=== PATIENT | female | born 1935 | race Caucasian/White ===

== ENCOUNTER 2021-01-08 10:28 | Outpatient (REF) | payer MEDICARE, SELFPAY ==
[2021-01-08 11:24] LABS: MANUAL DIFF FLAG NO
[2021-01-08 11:45] LABS: Basophils Percent Auto 0.4 % (0-2); Eosinophils Absolute Auto 0.3 X10*3/uL (0.0-0.4); Eosinophils Percent Auto 3.4 % (0-4); Hematocrit 34.5 % (37-47); Hemoglobin 10.7 g/dl (12.0-16.0); Imm Gran Abs Auto 0.01 X10*3/uL (0.00-0.03); Imm Gran Pct Auto 0.1 % (0.0-0.4); Lymphocytes Absolute Auto 2.9 X10*3/uL (1.2-4.9); Mean Corpuscular Hemoglobin 29.3 pg (27.0-33.0); Mean Corpuscular Volume 94.5 fL (80-98); Mean Platelet Volume 9.8 fL (9.4-12.3); Monocytes Absolute Auto 0.5 X10*3/uL (0.1-1.2); Monocytes Percent Auto 6.7 % (2-11); Neutrophils Absolute Auto 4.2 X10*3/uL (2.0-8.3); Neutrophils Percent Auto 53.4 % (45-73); Platelet Count 224 X10*3/uL (160-400); Red Blood Count 3.65 X10*6/uL (4.20-5.50); Red Cell Distribution Width 14.6 % (11.0-16.0); White Blood Count 7.9 X10*3/uL (4.8-10.8)
[2021-01-08 11:58] LABS: Alanine Aminotransferase 21 U/L (0-31); Anion Gap 13 (12-20); Aspartate Amino Transferase 34 U/L (5-31); Blood Urea Nitrogen 30 mg/dL (9-16); Calcium 9.1 mg/dL (8.4-10.2); Carbon Dioxide 25 mmol/L (22-29); Chloride 103 mmol/L (96-108); Cholesterol 132 mg/dL; Estimated Glomerular Filt Rate 38; Glucose Fasting 131 mg/dL (60-99); HDL Cholesterol 51 mg/dL; Iron 54 mcg/dL (30-160); LDL Cholesterol Calculated 69 mg/dl; Percent Iron Saturation 21 % (15-50); Potassium 4.4 mmol/L (3.3-5.1); Sodium 137 mmol/L (135-145); Total Iron Binding Capacity 258 mcg/dL (228-428); Triglycerides 64 mg/dL; Unsaturated Iron Binding 204 ug/dL
[2021-01-08 12:22] LABS: TSH reflex Free T4 1.28 uIU/mL (0.32-4.0); Vitamin D 25-OH Total 24.2 ng/mL (>30)
[2021-01-08 14:57] LABS: Microalbum/Creatinine Ratio Ur 162.7 ug/mg cr
== END 2021-01-08 10:29 | disposition home or self-care (01) ==
LOC: HO.HMGCLDS 10:28
PROVIDERS: PCP Internal Medicine; Visit Provider Internal Medicine
DX: E11.65 Type 2 diabetes mellitus with hyperglycemia (principal); E78.5 Hyperlipidemia, unspecified; I25.10 Atherosclerotic heart disease of native coronary artery without angina pectoris; I10 Essential (primary) hypertension; K21.9 Gastro-esophageal reflux disease without esophagitis; Z95.1 Presence of aortocoronary bypass graft
CPT/HCPCS: 36415; 80048; 80061; 82043; 82306; 83540; 84443; 84450; 84460; 85025

== ENCOUNTER → 2021-02-12 14:45 | Outpatient (BNVA) | payer MEDICARE, SELFPAY | PROVIDERS: PCP Internal Medicine; Referring Provider Internal Medicine; Visit Provider Internal Medicine Cardiovascular Disease | DX: I25.10 Atherosclerotic heart disease of native coronary artery without angina pectoris (principal); Z95.1 Presence of aortocoronary bypass graft; Z86.79 Personal history of other diseases of the circulatory system; Z79.899 Other long term (current) drug therapy | CPT/HCPCS: 93005; 99202 ==

== ENCOUNTER 2021-04-13 14:30 | Outpatient (REF) | payer MEDICARE, SELFPAY ==
[2021-04-13 16:22] LABS: MANUAL DIFF FLAG NO
[2021-04-13 16:26] LABS: Basophils Percent Auto 0.5 % (0-2); Eosinophils Absolute Auto 0.3 X10*3/uL (0.0-0.4); Eosinophils Percent Auto 3.7 % (0-4); Hematocrit 33.1 % (37-47); Hemoglobin 10.2 g/dl (12.0-16.0); Imm Gran Abs Auto 0.02 X10*3/uL (0.00-0.03); Imm Gran Pct Auto 0.2 % (0.0-0.4); Lymphocytes Absolute Auto 2.8 X10*3/uL (1.2-4.9); Lymphocytes Percent Auto 31.6 % (20-40); Mean Corpuscular HGB Conc 30.8 g/dl (31.0-35.0); Mean Corpuscular Hemoglobin 29.3 pg (27.0-33.0); Mean Corpuscular Volume 95.1 fL (80-98); Mean Platelet Volume 9.8 fL (9.4-12.3); Monocytes Absolute Auto 0.6 X10*3/uL (0.1-1.2); Monocytes Percent Auto 7.1 % (2-11); Neutrophils Percent Auto 56.9 % (45-73); Platelet Count 224 X10*3/uL (160-400); Red Blood Count 3.48 X10*6/uL (4.20-5.50); Red Cell Distribution Width 14.9 % (11.0-16.0); White Blood Count 8.8 X10*3/uL (4.8-10.8)
[2021-04-13 17:02] LABS: Alanine Aminotransferase 15 U/L (0-31); Anion Gap 14 (12-20); Aspartate Amino Transferase 27 U/L (5-31); Blood Urea Nitrogen 26 mg/dL (9-16); Calcium 9.4 mg/dL (8.4-10.2); Carbon Dioxide 24 mmol/L (22-29); Chloride 107 mmol/L (96-108); Cholesterol 130 mg/dL; Estimated Glomerular Filt Rate 33; Glucose Fasting 165 mg/dL (60-99); HDL Cholesterol 47 mg/dL; Iron 59 mcg/dL (30-160); LDL Cholesterol Calculated 58 mg/dl; Potassium 4.9 mmol/L (3.3-5.1); Sodium 140 mmol/L (135-145); Triglycerides 126 mg/dL
[2021-04-13 17:10] LABS: Vitamin D 25-OH Total 25.6 ng/mL (>30)
[2021-04-13 17:15] LABS: Percent Iron Saturation 24 % (15-50); Total Iron Binding Capacity 247 mcg/dL (228-428); Unsaturated Iron Binding 188 ug/dL
[2021-04-14 16:20] LABS: Folate > 20.0 ng/mL (> or = 4.0); Vitamin B12 823 pg/mL (200-900)
== END 2021-04-13 14:31 | disposition home or self-care (01) ==
LOC: HO.HMGCLDS 14:30
PROVIDERS: PCP Internal Medicine; Visit Provider Internal Medicine
DX: D64.9 Anemia, unspecified (principal); E11.65 Type 2 diabetes mellitus with hyperglycemia; I25.10 Atherosclerotic heart disease of native coronary artery without angina pectoris; K21.9 Gastro-esophageal reflux disease without esophagitis; E78.5 Hyperlipidemia, unspecified; I10 Essential (primary) hypertension; Z95.1 Presence of aortocoronary bypass graft; Z85.79 Personal history of other malignant neoplasms of lymphoid, hematopoietic and related tissues
CPT/HCPCS: 36415; 80048; 80061; 82306; 82607; 82746; 83540; 84450; 84460; 85025

== ENCOUNTER → 2021-04-20 10:08 | Outpatient (REF) | payer MEDICARE, SELFPAY ==
--- NOTE | 2021-04-20 10:12 | CA_ITS ---
Transthoracic Echocardiogram Patient (Last, First, Middle): Stephanie Fernandez, Gender: Female Date of : 1935 Age: 86 Procedure Date: 04/20/2021 Procedure Type: Transthoracic Echocardiogram Location: OP Height: 154.94 cm Weight: 69.4 kg BSA: 1.69 m2 Heart Rate: bpm BP: 120 / 62 mmHg Communications Executive: Malorie MD: Gio Noriega MD Shrinking Machine Operator: Daniel Prabhakar MD Symptoms: I42.9 - Cardiomyopathy, unspecified Study Quality: Technically Difficult ECG Rhythm: Sinus Conclusions: - 1. Normal LV systolic function with impaired relaxation filling pattern 2. Reported prosthetic aortic valve with mean gradients within normal limits 3. Mitral and calcification with possible mitral stenosis with mild mitral regurgitation 4. No gross pericardial effusion Findings Procedure Information The patient receives contrast. Left Ventricle Normal left ventricular cavity size. The left ventricular systolic function is normal. The visually estimated ejection fraction is between 55-60%. Regional wall motion abnormalities can not be excluded due to suboptimal endocardial definition. Spectral Doppler is indicative of an impaired relaxation filling pattern. E/E prime ratio is between 8 and 15 consistent with indeterminate filling pressures. Right Ventricle Normal right ventricular cavity size. There is low normal right ventricular systolic function. Atria The left atrium is likely dilated. Interatrial shunt cannot be excluded. The right atrium is likely dilated. Aortic Valve There is a prosthesis in the aortic valve the details of which can not be evaluated. The aortic valve was not well visualized. The mean gradient is 11 mmHg. The valve appears to be well seated with no abnormal rocking motion. Mean gradient across aortic valve appears to be within acceptable limits Mitral Valve There is moderate anterior and posterior mitral leaflet thickening. There is moderate mitral annular calcification. There is mild mitral valve regurgitation. Calcific mitral stenosis cannot be ruled out Pulmonic Valve The pulmonic valve was not well visualized. Tricuspid Valve The tricuspid valve was not well visualized. Great Vessels The aorta was not well visualized. The pulmonary artery was not well visualized. Venous The inferior vena cava was not well visualized. Pericardium/Pleural There is no evidence of pericardial effusion. Prior Study Comparison No prior study available for comparison. Measurements 2D Linear Measurements LVIDd: 3.63 3.9-5.3/4.2-5.9 cm LVIDd Index: 2.15 2.4-3.2/2.2-3.1 cm/m2 LVIDs: 2.99 2.0-3.6 cm LVPWd: 1.01 0.7-1.1 cm LA Diam: 3.70 2.7-3.8/3.0-4.0 cm LAIDs Index: 2.19 1.5-2.3 cm/m2 2D Systolic Function EF 4C: 47.60 >55% EF 2C: 65.00 >55% EF BiP: 58.20 >55% Mitral Valve MV Pk E: 0.96 MV PK A: 1.38 MV Decel Time: 482.00 E/A: 0.70 E'Lateral: 7.94 E'Medial: 3.92 E/E' Med: 24.40 E/E' Lat: 12.00 PHT: 107.00 MVA PHT: 2.06 Decel [place]: 3.16 Aortic Valve AoV Pk Bridger: 2.14 AoV Mn Bridger: 1.61 AoV VTI: 0.52 AoV Pk Grad: 18.00 Aov Mn Grad: 11.00 LVOT LVOT Pk Bridger: 0.90 LVOT Mn Bridger: 0.56 LVOT VTI: 0.21 LVOT Pk Grad: 3.00 LVOT Mn Grad: 2.00 Diastolic Function MV Pk E: 0.96 MV Pk A: 1.38 E/A: 0.70 E'Medial: 3.92 E/E' Med: 24.40 E' Laterial: 7.94 E/E' Lat: 12.00 Right Ventricle TAPSE (mm): 16.00 TVS' Bridger: 8.70 Tricuspid Valve TR Pk Bridger: 2.73 TR Pk Grad: 30.00 Updated in Other Vendor System with Status of Final Daniel Prabhakar MD electronically signed on 04/21/2021 2:20:14 PM with status of Final
== END ==
LOC: HO.CARD 10:08
PROVIDERS: Visit Provider Internal Medicine Cardiovascular Disease
DX: I42.9 Cardiomyopathy, unspecified (principal)
CPT/HCPCS: 93306; Q9957

== ENCOUNTER 2021-07-19 09:51 | Outpatient (REF) | payer MEDICARE, SELFPAY ==
[2021-07-19 11:38] LABS: MANUAL DIFF FLAG NO
[2021-07-19 11:53] LABS: Basophils Percent Auto 0.5 % (0-2); Eosinophils Absolute Auto 0.4 X10*3/uL (0.0-0.4); Eosinophils Percent Auto 5.6 % (0-4); Hematocrit 32.6 % (37.0-47.0); Hemoglobin 10.3 g/dl (12.0-16.0); Imm Gran Abs Auto 0.01 X10*3/uL (0.00-0.03); Imm Gran Pct Auto 0.1 % (0.0-0.4); Lymphocytes Absolute Auto 2.7 X10*3/uL (1.2-4.9); Lymphocytes Percent Auto 35.6 % (20-40); Mean Corpuscular HGB Conc 31.6 g/dl (31.0-35.0); Monocytes Absolute Auto 0.5 X10*3/uL (0.1-1.2); Neutrophils Absolute Auto 3.9 x10*3/uL (2.0-8.3); Neutrophils Percent Auto 51.2 % (45-73); Platelet Count 237 X10*3/uL (160-400); Red Blood Count 3.43 X10*6/uL (4.20-5.50); White Blood Count 7.7 X10*3/uL (4.8-10.8)
[2021-07-19 12:11] LABS: Estimated Average Glucose 146 mg/dL; Hemoglobin A1c % 6.7 %
[2021-07-19 13:12] LABS: Alanine Aminotransferase 15 U/L (0-31); Anion Gap 14 (12-20); Aspartate Amino Transferase 27 U/L (5-31); Blood Urea Nitrogen 25 mg/dL (9-16); Calcium 9.1 mg/dL (8.4-10.2); Carbon Dioxide 23 mmol/L (22-29); Chloride 105 mmol/L (96-108); Cholesterol 141 mg/dL; Estimated Glomerular Filt Rate 40; Glucose Fasting 117 mg/dL (60-99); HDL Cholesterol 60 mg/dL; Iron 114 mcg/dL (30-160); LDL Cholesterol Calculated 69 mg/dl; Percent Iron Saturation 44 % (15-50); Potassium 4.9 mmol/L (3.3-5.1); Sodium 137 mmol/L (135-145); Total Iron Binding Capacity 257 mcg/dL (228-428); Triglycerides 60 mg/dL; Unsaturated Iron Binding 143 ug/dL
[2021-07-19 13:22] LABS: Vitamin D 25-OH Total 39.6 ng/mL (>30)
== END 2021-07-19 09:52 | disposition home or self-care (01) ==
LOC: HO.HMGCLDS 09:51
PROVIDERS: PCP Internal Medicine; Visit Provider Internal Medicine
DX: D64.9 Anemia, unspecified (principal); E11.65 Type 2 diabetes mellitus with hyperglycemia; E56.9 Vitamin deficiency, unspecified; I10 Essential (primary) hypertension; E78.5 Hyperlipidemia, unspecified; Z78.0 Asymptomatic menopausal state
CPT/HCPCS: 36415; 80048; 80061; 82306; 83036; 83540; 84450; 84460; 85025

== ENCOUNTER → 2021-07-23 09:48 | Outpatient (BNVA) | payer MEDICARE, SELFPAY | PROVIDERS: PCP Internal Medicine; Referring Provider Internal Medicine; Visit Provider Internal Medicine Cardiovascular Disease | DX: I10 Essential (primary) hypertension (principal); Z95.1 Presence of aortocoronary bypass graft; Z86.79 Personal history of other diseases of the circulatory system | CPT/HCPCS: 99212 ==

== ENCOUNTER → 2021-10-04 12:50 | Outpatient (BNVA) | payer MEDICARE, SELFPAY | PROVIDERS: PCP Internal Medicine; Referring Provider Internal Medicine; Visit Provider Internal Medicine Cardiovascular Disease | DX: R55 Syncope and collapse (principal); R09.89 Other specified symptoms and signs involving the circulatory and respiratory systems; J44.9 Chronic obstructive pulmonary disease, unspecified; Z95.1 Presence of aortocoronary bypass graft | CPT/HCPCS: 93005; 99212 ==

== ENCOUNTER → 2021-10-10 10:51 | Outpatient (REF) | payer MEDICARE, SELFPAY ==
--- NOTE | 2021-10-10 10:56 | HM_ITS ---
TEST PERFORMED: Cardiac event monitoring. REQUESTING PHYSICIAN: Dr. Noriega. ENROLLMENT PERIOD: 10/10/2021 to 11/09/2021, 30 days. INDICATION: Syncope and collapse. FINDINGS: In the above monitoring period, underlying rhythm was sinus. Rates ranged from 74 to 120 beats per minute. There is evidence of intraventricular conduction defect. There was also evidence of PVCs. Ventricular bigeminy noted. During this time, there was 1 episode of mention of dizziness and that showed sinus tachycardia at 106/min. Otherwise, no other symptoms during the monitoring. German Rivera MD HS/MODL / [id number]
== END ==
LOC: HO.CARD 10:51
PROVIDERS: Visit Provider Internal Medicine Cardiovascular Disease
DX: R55 Syncope and collapse (principal)
CPT/HCPCS: 93270

== ENCOUNTER 2021-11-01 08:38 | Outpatient (REF) | payer MEDICARE, SELFPAY ==
--- NOTE | 2021-11-01 14:51 | PFT_ITS ---
FLOWS: FEV1 96% of predicted at 1.26 L. FVC 78% of predicted at 1.42 L. FEV1 to FVC ratio of 0.89. No bronchodilator response. LUNG VOLUMES: Total lung capacity 73% of predicted at 3.17 L. Residual volume 78% of predicted at 1.75 L. Slow vital capacity is 69% of predicted at 1.42 L. Expiratory reserve volume 212% of predicted at 0.51 L. Diffusion capacity is moderately decreased, diffusion capacity adjust to being mildly decreased after correction for alveolar ventilation. IMPRESSION: Mild restrictive ventilatory defect with no bronchodilator response. Decreased diffusion capacity suggests emphysema. Sergei Willis MD AP/MODL / [id number] MTDD
== END 2021-11-01 08:39 | disposition home or self-care (01) ==
LOC: HO.RESP 08:38
PROVIDERS: PCP Internal Medicine; Visit Provider Internal Medicine Cardiovascular Disease
DX: J44.9 Chronic obstructive pulmonary disease, unspecified (principal)
CPT/HCPCS: 94060; 94727; 94729

== ENCOUNTER 2021-11-06 14:31 | Outpatient (REF) | payer MEDICARE, SELFPAY ==
[2021-11-06 15:36] LABS: MANUAL DIFF FLAG NO
[2021-11-06 15:54] LABS: Basophils Percent Auto 0.5 % (0-2); Eosinophils Absolute Auto 0.4 X10*3/uL (0.0-0.4); Eosinophils Percent Auto 4.9 % (0-4); Hematocrit 34.1 % (37.0-47.0); Hemoglobin 10.3 g/dl (12.0-16.0); Imm Gran Abs Auto 0.02 X10*3/uL (0.00-0.03); Imm Gran Pct Auto 0.2 % (0.0-0.4); Lymphocytes Absolute Auto 2.4 X10*3/uL (1.2-4.9); Lymphocytes Percent Auto 28.2 % (20-40); Mean Corpuscular HGB Conc 30.2 g/dl (31.0-35.0); Mean Corpuscular Hemoglobin 29.3 pg (27.0-33.0); Mean Corpuscular Volume 97.2 fL (80.0-98.0); Mean Platelet Volume 9.8 fL (9.4-12.3); Monocytes Absolute Auto 0.6 X10*3/uL (0.1-1.2); Neutrophils Absolute Auto 5.1 x10*3/uL (2.0-8.3); Neutrophils Percent Auto 59.2 % (45-73); Platelet Count 243 X10*3/uL (160-400); Red Blood Count 3.51 X10*6/uL (4.20-5.50); Red Cell Distribution Width 14.7 % (11.0-16.0); White Blood Count 8.6 X10*3/uL (4.8-10.8)
[2021-11-06 16:03] LABS: D Dimer High Sensitivity 1522 NG/ML
[2021-11-06 16:20] LABS: Anion Gap 14 (12-20); Blood Urea Nitrogen 22 mg/dL (9-16); Calcium 9.5 mg/dL (8.4-10.2); Carbon Dioxide 24 mmol/L (22-29); Chloride 105 mmol/L (96-108); Estimated Glomerular Filt Rate 28; Glucose Random 151 mg/dL (60-115); Potassium 5.8 mmol/L (3.3-5.1); Sodium 137 mmol/L (135-145)
[2021-11-06 16:35] LABS: Erythrocyte Sedimentation Rate 67 MM/HR (0-20)
[2021-11-07 08:26] LABS: SARS-COV-2 IgG Spike, Semi-Qnt 24.73 index (<1.00)
[2021-11-08 13:41] LABS: Anti Nuclear Antibody Screen NEGATIVE (NEGATIVE)
== END 2021-11-06 14:32 | disposition home or self-care (01) ==
LOC: HO.LAB 14:31
PROVIDERS: PCP Internal Medicine; Visit Provider Hospitalist
DX: J98.4 Other disorders of lung (principal); J84.9 Interstitial pulmonary disease, unspecified; R09.02 Hypoxemia; R06.00 Dyspnea, unspecified; G47.34 Idiopathic sleep related nonobstructive alveolar hypoventilation; R55 Syncope and collapse; Z20.822 Contact with and (suspected) exposure to COVID-19
CPT/HCPCS: 36415; 80048; 85025; 85379; 85652; 86038; 86039; 86769; 94618; 99202

== ENCOUNTER 2021-11-07 09:20 | Emergency (ER) | payer MEDICARE, SELFPAY ==
--- NOTE | 2021-11-07 | ECG_ITS ---
Test Reason : abnormal labs Blood Pressure : / mmHG Vent. Rate : 088 BPM Atrial Rate : 088 BPM P-R Int : 204 ms QRS Dur : 104 ms QT Int : 366 ms P-R-T Axes : 047 045 136 degrees QTc Int : 442 ms Sinus rhythm with frequent Premature ventricular complexes in a pattern of bigeminy T wave abnormality, consider lateral ischemia Abnormal ECG No previous ECGs available Referred By: Generic ED Physician Electronically Signed By:MACARIO CROCKETT MD
--- NOTE | ~2021-11-07 | XR_ITS ---
EXAMINATION: XR CHEST CLINICAL INFORMATION: Shortness of breath COMPARISON: None TECHNIQUE: 2 views of the chest were obtained. FINDINGS: The cardiac silhouette is enlarged. There is an aortic valve replacement and median sternotomy wires. There may be post-CABG changes as well. Hilar and mediastinal contours are otherwise unremarkable. There are increased interstitial markings suggestive of interstitial lung disease. There is no pleural effusion or pneumothorax. There are degenerative changes of the spine and shoulders. XR/XR chest 2V IMPRESSION: Interstitial lung disease. Postoperative changes from aortic valve replacement and possible CABG procedure.
--- NOTE | ~2021-11-07 | NM_ITS ---
EXAMINATION: PULMONARY PERFUSION STUDY CLINICAL INFORMATION: Shortness of breath, elevated d-dimer. COMPARISON: No previous lung scan is available for comparison. A current chest radiograph is not available for comparison. TECHNIQUE: Following the intravenous injection of 4.0 mCi Tc-99m MAA, an 8-view perfusion study was performed using a gamma scintillation camera. FINDINGS: No segmental perfusion defects are present. There is minimal heterogeneity in the distribution of activity bilaterally. Decreased activity at the right lung base may be due to elevation of the right hemidiaphragm, but a current chest radiograph is not available for comparison. There are no focal anatomic appearing perfusion defects present. NM/NM pul perfusion IMPRESSION: Very low probability of pulmonary embolism.
[2021-11-07 09:24] VITALS: BP 140/35; PULSE 48; RESP 19; TEMP 36.6; O2SAT 100; BMI 29.7
--- NOTE | 2021-11-07 09:39 | ED.RECABL ---
HPI - Recheck/Abnormal Lab/Rx General Chief Complaint: Recheck/Abnormal Lab/Rx Stated Complaint: abnormal blood work Time Seen by Provider: 11/07/21 09:37 Source: patient Mode of arrival: ambulatory Limitations: no limitations History of Present Illness HPI narrative: 86 y/o female with history of ILD, anemia, DM2, CAD s/p CABG, aortic stenosis, bradycardia who presents to the ED from home for evaluation of hyperkalemia and RAMIRO that was noted on lab work yesterday. Labs showed a K+ 5.8 and SCr 1.76. She has no complaints today. She reports over the last 2 or 3 weeks she has noticed an increase in her shortness of breath with exertion. She has known ILD and follows with Dr. Weiss. She denies any chest pain, fatigue, dizziness, syncope or presyncope. Upon review of her lab work it also appears that she had a D-dimer that was checked yesterday and elevated at 1500. No personal or family history of blood clots. MD complaint: abnormal lab Initial visit (ago): day(s) Returns today for: called because of abnormal lab/test Symptoms since prior visit: no new symptoms Associated symptoms: shortness of breath Related Data Home Medications Medication Instructions Recorded Confirmed ascorbate calcium (vitamin C) 500 500 mg PO DAILY 01/05/21 11/06/21 mg tablet aspirin 81 mg tablet,delayed 81 mg PO DAILY 01/05/21 11/06/21 release (Ecotrin Low Strength) ferrous sulfate 325 mg (65 mg 325 mg PO DAILY 01/05/21 11/06/21 iron) tablet (FeroSul) fluticasone propionate 50 0 mcg INTRANASAL 01/05/21 11/06/21 mcg/actuation nasal spray,suspension multivitamin 1 tab PO DAILY 01/05/21 11/06/21 acetaminophen 325 mg capsule 650 mg PO Q6H PRN 10/01/21 11/06/21 docusate sodium 100 mg capsule 100 mg PO BID 10/01/21 11/06/21 furosemide 20 mg tablet 10 mg PO QAM tab 10/01/21 11/06/21 Previous Rx's Medication Instructions Recorded albuterol sulfate 90 mcg/actuation 2 inh INHALATION QID PRN 90 Days 10/01/21 aerosol inhaler #8.5 g isosorbide mononitrate 30 mg 30 mg PO DAILY #90 tab 10/01/21 tablet,extended release 24 hr lisinopril 2.5 mg tablet 2.5 mg PO DAILY #90 tab 10/01/21 metformin 500 mg tablet,extended 500 mg PO DAILY 90 Days #90 tab 10/01/21 release 24 hr pantoprazole 40 mg tablet,delayed 40 mg PO DAILY 90 Days #90 tab 10/01/21 release rosuvastatin 40 mg tablet 40 mg PO DAILY #90 tab 10/01/21 budesonide-formoterol HFA 160 2 inh PO Q12H #20.4 g 10/30/21 mcg-4.5 mcg/actuation aerosol inhaler (Symbicort) Allergies Allergy/AdvReac Type Severity Reaction Status Date / Time No Known Allergies Allergy Verified 11/06/21 14:41 Review of Systems Review of Systems: Constitutional: No Fever, No Chills ENT/Mouth: No sore throat, No Rhinorrhea, No Swallowing Difficulty Eyes: No Eye Pain, No Swelling, No Redness Cardiovascular: No Chest Pain, + SOB, No Orthopnea, No Edema Respiratory: No Cough, No Sputum, No Wheezing, + dyspnea Gastrointestinal: No Nausea, No Vomiting, No Diarrhea, No abdominal Pain, No Hematochezia, No Melena Genitourinary: No Dysuria, No Urinary Frequency, No Hematuria Musculoskeletal: No joint pain, No Myalgias Skin: No Skin Lesions, No rash Neuro: No Weakness, No Numbness, No Dizziness, No Headache Psych: No Anxiety/Panic, No Depression Heme/Lymph: No Bruising, No Lymphadenopathy Endocrine: No Polyuria, No Polydipsia PMFSH Past Medical History Attestation statement: The following information was validated with the patient. Medical History Anemia CAD (coronary artery disease) Chronic restrictive lung disease COPD (chronic obstructive pulmonary disease) Diabetes mellitus with hyperglycemia, without long-term current use of insulin Dyslipidemia Dyspnea Essential hypertension First degree AV block Hx of aortic valve stenosis Hx of cataract Hypoxia ILD (interstitial lung disease) Nocturnal hypoxia Sinus bradycardia Type 2 diabetes mellitus without complication, without long-term current use of insulin Vitamin deficiency Surgical History Hx of aortic valve replacement Hx of CABG Hx of carpal tunnel repair Hx of cholecystectomy Hx of coronary artery bypass graft Hx of knee surgery Hx of total hysterectomy Family History Family History Sister Colon cancer, Onset Age: 94 Sister Breast cancer, Onset Age: 73 Father Lung cancer Mother CAD (coronary artery disease) Myocardial infarction acute, Onset Age: 84 Other No significant family history Social History Social History Housing: House Alcohol intake: never Patient Tobacco Use Status: Former Tobacco user Quit Date: 1989 Tobacco use type: Cigarette Years Smoked: 43 e-Cigarette/Vaping Use: Never Used Second Hand Smoke Exposure: No Advance Directives: No Advance Directives Information Provided: No Current occupational status: retired Physical Exam Vital Signs: Vital Signs: Last Vital Signs Temp 98 F 11/07/21 09:24 Pulse 86 11/07/21 12:15 Resp 14 11/07/21 12:15 BP 151/65 H 11/07/21 12:15 Pulse Ox 98 11/07/21 12:15 BMI result Body Mass Index 29.7 Appearance: Alert. Oriented X3. No acute distress. Eyes: Pupils equal, round and reactive to light. ENT: Pharynx normal. Moist mucous membranes. Neck: Normal inspection. Neck supple. CVS: Normal heart rate and rhythm. Pulses normal. Respiratory: No respiratory distress. Breath sounds coarse throughout. No wheezes or rhonchi. Abdomen: Soft and nontender. +BS x4 Skin: Skin warm and dry. Normal skin color. Normal skin turgor. No rashes. Extremities: No lower extremity edema. No calf tenderness. Neuro: Oriented X 3. No motor deficit. No sensory deficit. Course Course Course Narrative: 86 y/o female with hx ILD, DM2, CAD s/p CABG, aortic stenosis, HTN s/p replacement who presents with abnormal labs. She was found have a potassium of 5.8 yesterday along with a creatinine 1.76. Upon review also. She had a D-dimer done that was elevated at 1500. She is complaining of worsening dyspnea on exertion for the last 2 weeks. Known ILD and is on inhalers. She denies any chest pain or presyncope. Will plan to repeat lab work today, give IV fluids for hydration, and get a V/Q scan to rule out PE. She has no lower extremity swelling or pain to suggest DVT. Reevaluation(s) Reevaluation #1: Lab work today showed her repeat potassium is normal at 5.1. Her creatinine is improved at 1.53. She got a total of 2 L of IV fluids. V/Q scan showing very low probability for pulmonary embolism. SpO2 98-100% on room air. No respiratory distress. At this time patient is stable for discharge home. Instructed to hold her lisinopril 2.5 mg daily. She will follow-up with her vessel welder Dr. Weiss as well as her primary care doctor for repeat blood work. Patient agrees with plan. MDM - Recheck/Abnormal Lab/Rx Lab Data Attestation: I reviewed the patient's lab results. Result diagrams: 11/07/21 10:02 11/07/21 10:02 Labs: Lab Results 11/07/21 11/07/21 11/07/21 Range/Units 10:02 10:02 10:03 WBC 7.0 (4.8-10.8) X10*3/uL RBC 3.37 L (4.20-5.50) X10*6/uL Hgb 9.7 L (12.0-16.0) g/dl Hct 32.3 L (37.0-47.0) % MCV 95.8 (80.0-98.0) fL MCH 28.8 (27.0-33.0) pg MCHC 30.0 L (31.0-35.0) g/dl RDW 14.7 (11.0-16.0) % Plt Count 229 (160-400) X10*3/uL MPV 9.2 L (9.4-12.3) fL Immature Gran % (Auto) 0.3 (0.0-0.4) % Neut % (Auto) 50.7 (45-73) % Lymph % (Auto) 33.4 (20-40) % Esmeralda % (Auto) 8.0 (2-11) % Eos % (Auto) 7.0 H (0-4) % Baso % (Auto) 0.6 (0-2) % Lymph # (Auto) 2.3 (1.2-4.9) X10*3/uL Esmeralda # (Auto) 0.6 (0.1-1.2) X10*3/uL Eos # (Auto) 0.5 H (0.0-0.4) X10*3/uL Baso # (Auto) 0.0 (0.0-0.2) X10*3/uL Abs Immat Gran (auto) 0.02 (0.00-0.03) X10*3/uL Absolute Neuts (auto) 3.6 (2.0-8.3) x10*3/uL Absolute Nucleated RBC 0.000 (0.0-0.012) X10*3/uL Nucleated RBC % (auto) 0.0 (0.0-0.2) /100WBC Sodium 137 (135-145) mmol/L Potassium 5.1 (3.3-5.1) mmol/L Chloride 105 (96-108) mmol/L Carbon Dioxide 25 (22-29) mmol/L Anion Gap 12 (12-20) BUN 23 H (9-16) mg/dL Creatinine 1.53 H (0.5-1.4) mg/dL Estim Creat Clear Calc 22.7 Estimated GFR 32 Random Glucose 115 (60-115) mg/dL Calcium 9.4 (8.4-10.2) mg/dL Magnesium 2.0 (1.6-2.6) mg/dL Total Bilirubin 0.3 (0.0-1.0) mg/dL Direct Bilirubin 0.2 (0.0-0.5) mg/dL AST 24 (5-31) U/L ALT 12 (0-31) U/L Alkaline Phosphatase 55 (39-117) U/L Total Protein 7.6 (6.5-8.0) g/dL Albumin 3.6 (3.5-5.0) g/dL Urine Color Urine Appearance Urine pH (5.0-8.0) Ur Specific [place] (1.005-1.025) Urine Protein (NEG-TRACE) MG/DL Urine Glucose (UA) (NEG) MG/DL Urine Ketones (NEG) MG/DL Urine Blood (NEG) Urine Nitrite (NEG) Ur Leukocyte Esterase (NEG) Urine RBC (0) /HPF Urine WBC (0-4) /HPF Ur Squamous Epith Cells /LPF Urine Bacteria /LPF Urine Mucus /LPF COVID-19 (SUMI) Negative (Negative) COVID-19 Clin Com See Note 11/07/21 Range/Units 12:22 WBC (4.8-10.8) X10*3/uL RBC (4.20-5.50) X10*6/uL Hgb (12.0-16.0) g/dl Hct (37.0-47.0) % MCV (80.0-98.0) fL MCH (27.0-33.0) pg MCHC (31.0-35.0) g/dl RDW (11.0-16.0) % Plt Count (160-400) X10*3/uL MPV (9.4-12.3) fL Immature Gran % (Auto) (0.0-0.4) % Neut % (Auto) (45-73) % Lymph % (Auto) (20-40) % Esmeralda % (Auto) (2-11) % Eos % (Auto) (0-4) % Baso % (Auto) (0-2) % Lymph # (Auto) (1.2-4.9) X10*3/uL Esmeralda # (Auto) (0.1-1.2) X10*3/uL Eos # (Auto) (0.0-0.4) X10*3/uL Baso # (Auto) (0.0-0.2) X10*3/uL Abs Immat Gran (auto) (0.00-0.03) X10*3/uL Absolute Neuts (auto) (2.0-8.3) x10*3/uL Absolute Nucleated RBC (0.0-0.012) X10*3/uL Nucleated RBC % (auto) (0.0-0.2) /100WBC Sodium (135-145) mmol/L Potassium (3.3-5.1) mmol/L Chloride (96-108) mmol/L Carbon Dioxide (22-29) mmol/L Anion Gap (12-20) BUN (9-16) mg/dL Creatinine (0.5-1.4) mg/dL Estim Creat Clear Calc Estimated GFR Random Glucose (60-115) mg/dL Calcium (8.4-10.2) mg/dL Magnesium (1.6-2.6) mg/dL Total Bilirubin (0.0-1.0) mg/dL Direct Bilirubin (0.0-0.5) mg/dL AST (5-31) U/L ALT (0-31) U/L Alkaline Phosphatase (39-117) U/L Total Protein (6.5-8.0) g/dL Albumin (3.5-5.0) g/dL Urine Color STRAW Urine Appearance CLEAR Urine pH 6.0 (5.0-8.0) Ur Specific [place] <= 1.005 (1.005-1.025) Urine Protein NEG (NEG-TRACE) MG/DL Urine Glucose (UA) NEG (NEG) MG/DL Urine Ketones NEG (NEG) MG/DL Urine Blood NEG (NEG) Urine Nitrite NEG (NEG) Ur Leukocyte Esterase TRACE H (NEG) Urine RBC 0 (0) /HPF Urine WBC 1-4 (0-4) /HPF Ur Squamous Epith Cells TRACE /LPF Urine Bacteria 1+ /LPF Urine Mucus TRACE /LPF COVID-19 (SUMI) (Negative) COVID-19 Clin Com ECG Data Attestation: I personally reviewed and interpreted this ECG as follows: ECG interpretation date: 11/07/21 ECG interpretation time: 10:43 Prior ECG tracings: available for review Interpretation: Sinus rhythm with frequent PVCs and pattern of bigeminy, heart rate 80 beats per minute, NV interval prolonged to 4 MS, no ST segment elevations or depressions. Critical Care Time Critical Care Time Critical Care Time: No Discharge Plan Discharge Clinical Impression: RAMIRO (acute kidney injury), Hyperkalemia Patient Disposition: Home, Self-Care Instructions: Acute Kidney Injury (DC), Hyperkalemia (ED) Additional Instructions: Your lab workup today showed an improved and now normal potassium level. Your kidney function was also improved, but not quite back to normal. You were given IV fluids to help with this. Your pulmonary test did not show any evidence of a blood clot in your lungs. Recommend HOLDING your lisinopril as this can be a cause of high potassium and abnormal kidney function. Follow up with your doctor to see if they would like to add another agent. There is no urgent need to start a new medicine today If you develop new or worsening symptoms call 911 or come back to the ER for further evaluation. Prescriptions: No Action budesonide-formoterol [Symbicort] 160-4.5 mcg/actuation HFA aerosol inhaler 2 inh PO Q12H Qty: 20.4 5RF fluticasone propionate 50 mcg/actuation spray,suspension 0 mcg intranasal 0RF ascorbate calcium (vitamin C) 500 mg tablet 500 mg PO DAILY 0RF aspirin [Ecotrin Low Strength] 81 mg tablet,delayed release (DR/EC) 81 mg PO DAILY 0RF ferrous sulfate [FeroSul] 325 mg (65 mg iron) tablet 325 mg PO DAILY 0RF multivitamin Tablet 1 tab PO DAILY 0RF isosorbide mononitrate 30 mg tablet extended release 24 hr 30 mg PO DAILY Qty: 90 0RF lisinopril 2.5 mg tablet 2.5 mg PO DAILY Qty: 90 0RF metformin 500 mg tablet extended release 24 hr 500 mg PO DAILY 90 Days Qty: 90 2RF rosuvastatin 40 mg tablet 40 mg PO DAILY Qty: 90 1RF albuterol sulfate 90 mcg/actuation HFA aerosol inhaler 2 inh inhalation QID PRN (Reason: shortness of breath or wheezing) 90 Days Qty: 8.5 4RF pantoprazole 40 mg tablet,delayed release (DR/EC) 40 mg PO DAILY 90 Days Qty: 90 0RF furosemide 20 mg tablet 10 mg PO QAM 0RF acetaminophen 325 mg capsule 650 mg PO Q6H PRN0RF docusate sodium 100 mg capsule 100 mg PO BID 0RF
[2021-11-07 09:40] VITALS: BP 127/55; PULSE 91; RESP 14; O2SAT 98
[2021-11-07] MEDS: 0.9 % Sodium Chloride 1,000 ML 999 ML IVCONT ×2 (10:05→11:05)
[2021-11-07 10:09] LABS: MANUAL DIFF FLAG NO
[2021-11-07 10:14] LABS: Basophils Percent Auto 0.6 % (0-2); Eosinophils Absolute Auto 0.5 X10*3/uL (0.0-0.4); Hematocrit 32.3 % (37.0-47.0); Hemoglobin 9.7 g/dl (12.0-16.0); Imm Gran Abs Auto 0.02 X10*3/uL (0.00-0.03); Imm Gran Pct Auto 0.3 % (0.0-0.4); Lymphocytes Absolute Auto 2.3 X10*3/uL (1.2-4.9); Lymphocytes Percent Auto 33.4 % (20-40); Mean Corpuscular Hemoglobin 28.8 pg (27.0-33.0); Mean Corpuscular Volume 95.8 fL (80.0-98.0); Mean Platelet Volume 9.2 fL (9.4-12.3); Monocytes Absolute Auto 0.6 X10*3/uL (0.1-1.2); Neutrophils Absolute Auto 3.6 x10*3/uL (2.0-8.3); Neutrophils Percent Auto 50.7 % (45-73); Platelet Count 229 X10*3/uL (160-400); Red Blood Count 3.37 X10*6/uL (4.20-5.50); Red Cell Distribution Width 14.7 % (11.0-16.0)
[2021-11-07 10:26] LABS: Alanine Aminotransferase 12 U/L (0-31); Albumin Level 3.6 g/dL (3.5-5.0); Alkaline Phosphatase 55 U/L (39-117); Anion Gap 12 (12-20); Aspartate Amino Transferase 24 U/L (5-31); Bilirubin Direct 0.2 mg/dL (0.0-0.5); Bilirubin Total 0.3 mg/dL (0.0-1.0); Blood Urea Nitrogen 23 mg/dL (9-16); Calcium 9.4 mg/dL (8.4-10.2); Carbon Dioxide 25 mmol/L (22-29); Chloride 105 mmol/L (96-108); Creatinine Clr Calc Pharmacy 22.7; Estimated Glomerular Filt Rate 32; Glucose Random 115 mg/dL (60-115); Potassium 5.1 mmol/L (3.3-5.1); Sodium 137 mmol/L (135-145); Total Protein 7.6 g/dL (6.5-8.0)
[2021-11-07 10:29] LABS: COVID-19 Test Negative (Negative); IDNOW Serial# 16C4AD1C
[2021-11-07 12:15] VITALS: BP 151/65; PULSE 86; RESP 14; O2SAT 98
[2021-11-07 12:32] LABS: Appearance Urine CLEAR; Color Urine STRAW; Glucose Urine UA NEG (NEG); Leukocyte Esterase Urine TRACE (NEG); Nitrite Urine NEG (NEG); Specific Gravity - Urine <= 1.005 (1.005-1.025); UACC Culture Trigger YES; Urine Blood NEG (NEG); Urine Ketones NEG (NEG); Urine Protein NEG (NEG-TRACE)
[2021-11-07 12:42] LABS: Bacteria Urine 1+ /LPF; Mucus Urine TRACE /LPF; RBC Urine 0 /HPF (0); Squamous Epithelial Cell Urine TRACE /LPF
== END 2021-11-07 14:05 | disposition home or self-care (01) ==
PROVIDERS: Physician Assistant; Emergency Provider Emergency Medicine; PCP Internal Medicine
DX: N17.9 Acute kidney failure, unspecified (principal); E87.5 Hyperkalemia; R79.89 Other specified abnormal findings of blood chemistry; I25.10 Atherosclerotic heart disease of native coronary artery without angina pectoris; E11.9 Type 2 diabetes mellitus without complications; F17.210 Nicotine dependence, cigarettes, uncomplicated; Z71.6 Tobacco abuse counseling; Z20.822 Contact with and (suspected) exposure to COVID-19; Z79.899 Other long term (current) drug therapy; Z79.84 Long term (current) use of oral hypoglycemic drugs
CPT/HCPCS: 71046; 78580; 80048; 80076; 81001; 83735; 85025; 87086; 87088; 87186; 87635; 93005; 96360; 96361; 99284; 99285; A9540

== ENCOUNTER → 2021-11-13 14:07 | Outpatient (BNVA) | payer MEDICARE, SELFPAY | PROVIDERS: PCP Internal Medicine; Referring Provider Internal Medicine; Visit Provider Nurse Practitioner Family | DX: I49.3 Ventricular premature depolarization (principal); I25.10 Atherosclerotic heart disease of native coronary artery without angina pectoris; Z86.79 Personal history of other diseases of the circulatory system; Z95.1 Presence of aortocoronary bypass graft; Z95.2 Presence of prosthetic heart valve | CPT/HCPCS: 99212 ==

== ENCOUNTER 2021-12-04 09:22 | Outpatient (REF) | payer MEDICARE, SELFPAY ==
--- NOTE | ~2021-12-04 | US_ITS ---
EXAMINATION: US EXTRACRANIAL CAROTID DUPLEX, BILATERAL CLINICAL INFORMATION: Carotid bruit. COMPARISON: None TECHNIQUE: Real-time ultrasound and Doppler techniques (integrating B-mode 2-D vascular images, Doppler spectral analysis and color-flow Doppler imaging) were utilized to interrogate the extracranial carotid arteries, the vertebral arteries and proximal subclavian arteries bilaterally. The degree of stenosis is determined by criteria similar to NASCET. FINDINGS: Right Side: 1. There is mild atherosclerotic plaque seen in the bifurcation/proximal ICA region. 2. The common carotid artery PSV proximally is 92 cm/s and distally 76 cm/s. 3. The proximal internal carotid artery velocities are 71 cm/s systolic and 18 cm/s diastolic. 4. The proximal external carotid artery PSV is 122 cm/s. 5. The vertebral artery shows antegrade flow. 6. The subclavian artery waveforms are normal. Left Side: 1. There is moderate atherosclerotic plaque seen in the bifurcation/proximal ICA region. 2. The common carotid artery PSV proximally is 73 cm/s and distally 116 cm/s. 3. The proximal internal carotid artery velocities are 100 cm/s systolic and 23 cm/s diastolic. 4. The proximal external carotid artery PSV is 116 cm/s. 5. The vertebral artery shows antegrade flow. 6. The subclavian artery waveforms are normal. US/US carotid duplex BI IMPRESSION: 1. RIGHT: Minimal, non-hemodynamically significant stenosis of the proximal right internal carotid artery corresponding to a 0-49% stenosis by velocity criteria. 2. LEFT: Minimal, non-hemodynamically significant stenosis of the proximal left internal carotid artery corresponding to a 0-49% stenosis by velocity criteria.
== END 2021-12-04 09:23 | disposition home or self-care (01) ==
LOC: HO.US 09:22
PROVIDERS: Visit Provider Internal Medicine Cardiovascular Disease
DX: R09.89 Other specified symptoms and signs involving the circulatory and respiratory systems (principal)
CPT/HCPCS: 93880

== ENCOUNTER → 2021-12-12 13:30 | Outpatient (BNVA) | payer MEDICARE, SELFPAY | PROVIDERS: PCP Internal Medicine; Referring Provider Internal Medicine; Visit Provider Nurse Practitioner Family | DX: R09.89 Other specified symptoms and signs involving the circulatory and respiratory systems (principal); R00.1 Bradycardia, unspecified; I49.3 Ventricular premature depolarization; I25.10 Atherosclerotic heart disease of native coronary artery without angina pectoris; Z95.2 Presence of prosthetic heart valve; Z95.1 Presence of aortocoronary bypass graft; Z86.79 Personal history of other diseases of the circulatory system | CPT/HCPCS: Q3014 ==

== ENCOUNTER → 2021-12-28 14:16 | Outpatient (BNVA) | payer MEDICARE, SELFPAY | PROVIDERS: PCP Internal Medicine; Visit Provider Hospitalist | DX: J98.4 Other disorders of lung (principal); J84.9 Interstitial pulmonary disease, unspecified; R06.02 Shortness of breath; R06.00 Dyspnea, unspecified; Z79.899 Other long term (current) drug therapy | CPT/HCPCS: 99212 ==

== ENCOUNTER 2022-01-01 08:32 | Outpatient (REF) | payer MEDICARE, SELFPAY ==
[2022-01-01 11:33] LABS: MANUAL DIFF FLAG NO
[2022-01-01 11:50] LABS: Basophils Absolute Auto 0.1 X10*3/uL (0.0-0.2); Basophils Percent Auto 0.6 % (0-2); Eosinophils Absolute Auto 0.5 X10*3/uL (0.0-0.4); Eosinophils Percent Auto 5.2 % (0-4); Estimated Average Glucose 146 mg/dL; Hematocrit 36.8 % (37.0-47.0); Hemoglobin A1C 151.7885 umol/L; Hemoglobin A1c % 6.7 %; Imm Gran Abs Auto 0.01 X10*3/uL (0.00-0.03); Imm Gran Pct Auto 0.1 % (0.0-0.4); Mean Corpuscular HGB Conc 29.9 g/dl (31.0-35.0); Mean Corpuscular Hemoglobin 28.7 pg (27.0-33.0); Mean Corpuscular Volume 96.1 fL (80.0-98.0); Mean Platelet Volume 9.8 fL (9.4-12.3); Monocytes Absolute Auto 0.5 X10*3/uL (0.1-1.2); Monocytes Percent Auto 5.3 % (2-11); Neutrophils Absolute Auto 4.9 x10*3/uL (2.0-8.3); Neutrophils Percent Auto 54.8 % (45-73); Platelet Count 261 X10*3/uL (160-400); Red Blood Count 3.83 X10*6/uL (4.20-5.50); Red Cell Distribution Width 14.5 % (11.0-16.0); White Blood Count 8.9 X10*3/uL (4.8-10.8)
[2022-01-01 11:52] LABS: Alanine Aminotransferase 12 U/L (0-31); Anion Gap 15 (12-20); Aspartate Amino Transferase 30 U/L (5-31); Blood Urea Nitrogen 25 mg/dL (9-16); Calcium 9.6 mg/dL (8.4-10.2); Carbon Dioxide 24 mmol/L (22-29); Chloride 104 mmol/L (96-108); Cholesterol 132 mg/dL; Estimated Glomerular Filt Rate 36; Glucose Fasting 115 mg/dL (60-99); HDL Cholesterol 59 mg/dL; LDL Cholesterol Calculated 61 mg/dl; Potassium 5.1 mmol/L (3.3-5.1); Sodium 138 mmol/L (135-145); Triglycerides 63 mg/dL
[2022-01-01 12:13] LABS: Vitamin D 25-OH Total 33.4 ng/mL (>30)
== END 2022-01-01 08:33 | disposition home or self-care (01) ==
LOC: HO.HMGCLDS 08:32
PROVIDERS: PCP Internal Medicine; Visit Provider Internal Medicine
DX: E11.65 Type 2 diabetes mellitus with hyperglycemia (principal); E78.5 Hyperlipidemia, unspecified; I10 Essential (primary) hypertension; I25.10 Atherosclerotic heart disease of native coronary artery without angina pectoris; Z78.0 Asymptomatic menopausal state
CPT/HCPCS: 36415; 80048; 80061; 82306; 83036; 84450; 84460; 85025

== ENCOUNTER → 2022-02-06 10:46 | Outpatient (BNVA) | payer MEDICARE, SELFPAY | PROVIDERS: PCP Internal Medicine; Referring Provider Internal Medicine; Visit Provider Internal Medicine Cardiovascular Disease | DX: I25.10 Atherosclerotic heart disease of native coronary artery without angina pectoris (principal); I10 Essential (primary) hypertension; J84.9 Interstitial pulmonary disease, unspecified; Z95.1 Presence of aortocoronary bypass graft | CPT/HCPCS: 99212 ==

== ENCOUNTER → 2022-06-27 10:41 | Outpatient (BNVA) | payer MEDICARE, OTHER, SELFPAY | PROVIDERS: PCP Internal Medicine; Visit Provider Hospitalist | DX: J84.9 Interstitial pulmonary disease, unspecified (principal); J98.4 Other disorders of lung; R09.02 Hypoxemia; R06.00 Dyspnea, unspecified; J45.909 Unspecified asthma, uncomplicated | CPT/HCPCS: 99212 ==

== ENCOUNTER 2022-12-31 10:53 | Outpatient (REF) | payer MEDICARE, SELFPAY ==
--- NOTE | ~2022-12-31 | XR_ITS ---
EXAMINATION: XR CHEST CLINICAL INFORMATION: Interstitial pulmonary disease. COMPARISON: Chest x-ray 11/07/2021 TECHNIQUE: 2 views of the chest were obtained. FINDINGS: The lungs are expanded with diffuse bilateral increased interstitial markings suggestive of chronic interstitial lung disease. There is an ill-defined 1.25 cm round lesion right lower lobe, stable. The heart size and pulmonary vascularity is normal. There are median sternotomy sutures and aortic valve prosthesis, stable. No gross bony abnormality. XR/XR chest 2V IMPRESSION: Chronic interstitial lung disease without acute process. There is ill-defined opacity right lower lobe, question nodule versus scarring. It appears unchanged to previous chest x-ray 11/07/2021.
== END 2022-12-31 10:54 | disposition home or self-care (01) ==
LOC: HO.XRAY 10:53
PROVIDERS: PCP Internal Medicine; Visit Provider Hospitalist
DX: Z23 Encounter for immunization (principal); J84.9 Interstitial pulmonary disease, unspecified
CPT/HCPCS: 71046; 90471; 90677; 99212

== ENCOUNTER 2023-01-09 09:56 | Outpatient (REF) | payer MEDICARE, SELFPAY ==
[2023-01-09 11:15] LABS: MANUAL DIFF FLAG NO
[2023-01-09 11:40] LABS: Basophils Absolute Auto 0.1 X10*3/uL (0.0-0.2); Basophils Percent Auto 0.7 % (0-2); Eosinophils Absolute Auto 0.4 X10*3/uL (0.0-0.4); Eosinophils Percent Auto 5.4 % (0-4); Hematocrit 40.2 % (37.0-47.0); Hemoglobin 12.5 g/dl (12.0-16.0); Imm Gran Abs Auto 0.02 X10*3/uL (0.00-0.03); Imm Gran Pct Auto 0.3 % (0.0-0.4); Lymphocytes Absolute Auto 2.6 X10*3/uL (1.2-4.9); Lymphocytes Percent Auto 37.9 % (20-40); Mean Corpuscular HGB Conc 31.1 g/dl (31.0-35.0); Mean Corpuscular Hemoglobin 29.6 pg (27.0-33.0); Mean Platelet Volume 9.9 fL (9.4-12.3); Monocytes Absolute Auto 0.4 X10*3/uL (0.1-1.2); Monocytes Percent Auto 6.5 % (2-11); Neutrophils Absolute Auto 3.4 x10*3/uL (2.0-8.3); Neutrophils Percent Auto 49.2 % (45-73); Platelet Count 220 X10*3/uL (160-400); Red Blood Count 4.23 X10*6/uL (4.20-5.50); Red Cell Distribution Width 13.4 % (11.0-16.0); White Blood Count 6.8 X10*3/uL (4.8-10.8)
[2023-01-09 12:26] LABS: Vitamin D 25-OH Total 33.7 ng/mL (>30)
[2023-01-09 12:49] LABS: Alanine Aminotransferase 16 U/L (0-31); Anion Gap 14 (12-20); Aspartate Amino Transferase 29 U/L (5-31); Blood Urea Nitrogen 24 mg/dL (9-16); Calcium 9.7 mg/dL (8.4-10.2); Carbon Dioxide 23 mmol/L (22-29); Chloride 107 mmol/L (96-108); Cholesterol 148 mg/dL; Estimated Glomerular Filt Rate 45; Glucose Fasting 99 mg/dL (60-99); HDL Cholesterol 59 mg/dL; Iron 72 mcg/dL (30-160); LDL Cholesterol Calculated 75 mg/dl; Percent Iron Saturation 31 % (15-50); Potassium 4.7 mmol/L (3.3-5.1); Sodium 139 mmol/L (135-145); Total Iron Binding Capacity 231 mcg/dL (228-428); Triglycerides 73 mg/dL; Unsaturated Iron Binding 159 ug/dL
== END 2023-01-09 09:57 | disposition home or self-care (01) ==
LOC: HO.HMGCLDS 09:56
PROVIDERS: PCP Internal Medicine; Visit Provider Internal Medicine
DX: D64.9 Anemia, unspecified (principal); E56.9 Vitamin deficiency, unspecified; E78.5 Hyperlipidemia, unspecified; G47.34 Idiopathic sleep related nonobstructive alveolar hypoventilation; I25.10 Atherosclerotic heart disease of native coronary artery without angina pectoris; J98.4 Other disorders of lung; N95.9 Unspecified menopausal and perimenopausal disorder; I12.9 Hypertensive chronic kidney disease with stage 1 through stage 4 chronic kidney disease, or unspecified chronic kidney disease; E11.22 Type 2 diabetes mellitus with diabetic chronic kidney disease; N18.9 Chronic kidney disease, unspecified
CPT/HCPCS: 36415; 80048; 80061; 82306; 83540; 84450; 84460; 85025

== ENCOUNTER → 2023-01-23 12:30 | Outpatient (BNVA) | payer MEDICARE, SELFPAY | PROVIDERS: PCP Internal Medicine; Referring Provider Internal Medicine; Visit Provider Nurse Practitioner Family | DX: I25.10 Atherosclerotic heart disease of native coronary artery without angina pectoris (principal); I10 Essential (primary) hypertension; E78.5 Hyperlipidemia, unspecified; Z95.1 Presence of aortocoronary bypass graft; Z86.79 Personal history of other diseases of the circulatory system; Z95.2 Presence of prosthetic heart valve | CPT/HCPCS: 93005; 99212 ==

== ENCOUNTER 2023-05-20 09:58 | Outpatient (REF) | payer MEDICARE, SELFPAY ==
--- NOTE | ~2023-05-20 | MM_ITS ---
EXAMINATION: BONE DENSITOMETRY CLINICAL INDICATION: Asymptomatic menopausal state. COMPARISON: This is the patient's baseline examination. TECHNIQUE: Using a PAYMEY DXA System (software version: 13.1) manufactured by [employer], dual-energy x-ray absorptiometry was performed of the lumbar spine and left hip. The images are of good technical quality. Summary results are attached. FINDINGS: LEFT FEMUR, NECK: BMD 0.918 g/cm2, Z-score 1.6, T-score -0.9, normal. LEFT FEMUR, TOTAL: BMD 0.921 g/cm2, Z-score 1.7, T-score -0.7, normal. AP SPINE L1-L2 (excluding L3 and L4): The data of L1-L4 has been changed to exclude the L3 and L4 vertebral bodies, because degenerative sclerosis at these levels may cause overestimation of lumbar spine density. BMD 1.315 g/cm2, Z-score 3.3, T-score 1.2, normal. IDENTIFIED RISK FACTORS: Early menopause, secondary osteoporosis, hysterectomy, bilateral oophorectomy, height loss. HISTORY OF FRACTURE: None listed. MEDICATIONS: Calcium supplements or multivitamin, vitamin D. MM/XR DEXA axial skeleton IMPRESSION: 1. DIAGNOSIS: Normal bone density based on the lowest T-score value of -0.9 in the femoral neck applying World Health Organization criteria. 2. 10-YEAR FRACTURE RISK PREDICTION, FRAX: According to the guidelines, FRAX calculation should only be performed on patients in the osteopenia bone density category. Therefore, FRAX was not performed on this patient. 3. Treatment Recommendations: NOF guidelines recommend consideration for treatment in postmenopausal women and men age 50 and older presenting with the following: -A hip or vertebral (clinical or morphometric) fracture. -T-score less than or equal to -2.5 at the femoral neck or spine after appropriate evaluation to exclude secondary causes. -Low bone mass at the hip or spine and a 10-year fracture probability by FRAX of greater than or equal to 3% for hip fracture or greater than or equal to 20% for major osteoporotic fracture based on the [place] adapted WHO algorithm. 4. Other Recommendations: All treatment decisions require clinical judgment and consideration of individual patient factors, including patient preferences, comorbidities, previous drug use, risk factors not captured in the FRAX model (e.g. frailty, falls, vitamin D deficiency, increased bone turnover, interval significant decline in bone density) and possible under or overestimation of fracture risk by FRAX. FUTURE SCAN RECOMMENDATION: People with diagnosed cases of osteoporosis or at high risk for fracture should have regular bone mineral density tests. For patients eligible for Medicare, routine testing is allowed once every 2 years. The testing frequency can be increased to one year for patients who have rapidly progressing disease, those who are receiving or discontinuing medical therapy to restore bone mass, or have additional risk factors.
== END 2023-05-20 09:59 | disposition home or self-care (01) ==
LOC: HO.MAMMO 09:58
PROVIDERS: PCP Internal Medicine; Visit Provider Internal Medicine
DX: Z13.820 Encounter for screening for osteoporosis (principal); Z78.0 Asymptomatic menopausal state
CPT/HCPCS: 77080

== ENCOUNTER → 2023-05-20 10:30 | Outpatient (BNV) | payer MEDICARE, SELFPAY | PROVIDERS: PCP Internal Medicine; Visit Provider Radiology Diagnostic Radiology | DX: Z78.0 Asymptomatic menopausal state (principal) | CPT/HCPCS: 77080 ==

== ENCOUNTER 2023-06-23 11:08 | Outpatient (AMB) | payer MEDICARE, SELFPAY ==
--- NOTE | 2023-06-23 11:58 | A.OFFPC_ITS ---
<Statement entered by Floresita Mora MD - 01/05/25 15:23> This note has been administratively?closed. Vital Signs 06/23/23 11:59 Height 4 ft 11 in Weight 131 lb 6 oz BMI 26.5 BP 162/80 H Blood Pressure Location Lt brachial Position Sitting Pulse 88 Pulse Source Pulse Oximeter Pulse Oximetry (%) 100 Oxygen Delivery Method Room Air Intake Visit Reasons: ffup Allergies No Known Allergies Allergy (Verified 04/08/24 15:02) Medication List - Last Reconciled 06/23/23 by Floresita Mora MD albuterol sulfate 90 mcg/actuation 2 inhalations inhalation QID PRN ascorbate calcium (vitamin C) 500 mg PO DAILY aspirin (Ecotrin Low Strength) 81 mg PO DAILY ferrous sulfate (FeroSul) 325 mg PO DAILY fluticasone propion-salmeterol 115-21 mcg/actuation (Advair HFA) 2 puffs inhalation Q12H 90 days fluticasone propionate 50 mcg/actuation 0 mcg intranasal furosemide 20 mg PO QAM isosorbide mononitrate ER 30 mg PO DAILY lisinopril 2.5 mg PO DAILY metformin ER 500 mg PO DAILY 90 days multivitamin 1 tab PO DAILY pantoprazole 40 mg PO DAILY 3 months rosuvastatin 40 mg PO DAILY Tobacco use date assessed: 06/23/23 Fall risk assessment: No Falls in past year Last assessed Fall Risk: 06/23/23 Dental Screening Dental Screen Date: 06/23/23 Did you have a dental visit in the last 12 months?: Yes Did you have a dental problem in the last 6 months where you did not have access to dental care?: No Was dental information given to patient?: Patient has dentist [facility] Medical History Chronic allergic rhinitis Asthma CKD (chronic kidney disease) Encounter for general adult medical examination with abnormal findings Keratoma Onychomycosis Dyspnea Hypoxia ILD (interstitial lung disease) Chronic restrictive lung disease Nocturnal hypoxia First degree AV block Sinus bradycardia Type 2 diabetes mellitus without complication, without long-term current use of insulin Vitamin deficiency Anemia Hx of aortic valve stenosis CAD (coronary artery disease) Dyslipidemia Essential hypertension Diabetes mellitus with hyperglycemia, without long-term current use of insulin Hx of cataract Surgical History Hx of coronary artery bypass graft Hx of carpal tunnel repair Hx of total hysterectomy Hx of knee surgery Hx of CABG Hx of aortic valve replacement Hx of cholecystectomy Family History Sister Colon cancer, Onset Age: 94 Sister Breast cancer, Onset Age: 73 Father Lung cancer Mother CAD (coronary artery disease) Myocardial infarction acute, Onset Age: 84 Other No significant family history Social History Housing: House Alcohol intake: never Patient Tobacco Use Status: Former Tobacco user Tobacco use type: Cigarette Years Smoked: 43 e-Cigarette/Vaping Use: Never Used Second Hand Smoke Exposure: No Current occupational status: retired Cognitive needs: No Hearing needs: No Vision needs: Yes Questionnaire Thrive Questionnaire Date Thrive assessed: 01/25/22 ANTHONY-7 AMB Questionnaire ANTHONY-7 Date ANTHONY - 7 assessed: 01/25/22 Source: Developed by Drs. Ming Contreras, Greta Loco, Diaz Pa and colleagues, with an educational carlos from [employer]. Review of Systems Eyes Details: has an appointment with her eye doctor in in [place] scheduled for this month Physical exam (Primary Care) Vital Signs: Last Vital Signs Pulse 88 06/23/23 11:59 BP 162/80 H 06/23/23 11:59 Pulse Ox 100 06/23/23 11:59 Oxygen Delivery Method Room Air 06/23/23 11:59 BMI result Body Mass Index 26.5 Tobacco/Smoking Status: Tobacco use Status Tobacco use date assessed 06/23/23 06/23/23 12:06 Patient Tobacco Use Status Former Tobacco user 06/23/23 11:59 Tobacco use type Cigarette 06/23/23 11:59 e-Cigarette/Vaping Use Never Used 06/23/23 11:59 Thrive Assessment: Date of Thrive Assessment Date Thrive assessed 01/25/22 06/23/23 11:59 Coding Level of Care Code Est Pt Level 3 (61879)
[2023-06-23 11:59] VITALS: BP 162/80; PULSE 88; O2SAT 100; BMI 26.5
== END 2023-06-23 14:52 | disposition home or self-care (01) ==
PROVIDERS: Visit Provider Internal Medicine
DX: Z00.00 Encounter for general adult medical examination without abnormal findings (principal)
CPT/HCPCS: 99499

== ENCOUNTER 2023-06-27 13:02 | Outpatient (AMB) | payer MEDICARE, SELFPAY ==
[2023-06-27 13:42] VITALS: BP 150/74; PULSE 77; O2SAT 93; BMI 25.9
--- NOTE | 2023-06-27 13:42 | A.OFFPC_ITS ---
Vital Signs 06/27/23 13:42 Height 4 ft 11 in Weight 128 lb 4 oz BMI 25.9 BP 150/74 H Blood Pressure Location Rt brachial Position Sitting Pulse 77 Pulse Source Pulse Oximeter Pulse Oximetry (%) 93 Oxygen Delivery Method Room Air Intake Visit Reasons: ear wax removal Intake Note: pt is here to have wax removed from both ears but the right one is worse pt would like an RX for debrox and a refill for her flonase Allergies No Known Allergies Allergy (Verified 06/29/23 18:03) Medication List - Last Reconciled 06/29/23 by Floresita Mora MD albuterol sulfate 90 mcg/actuation 2 inhalations inhalation QID PRN ascorbate calcium (vitamin C) 500 mg PO DAILY aspirin (Ecotrin Low Strength) 81 mg PO DAILY ferrous sulfate (FeroSul) 325 mg PO DAILY fluticasone propion-salmeterol 115-21 mcg/actuation (Advair HFA) 2 puffs inhalation Q12H 90 days fluticasone propionate 50 mcg/actuation 0 mcg intranasal furosemide 20 mg PO QAM isosorbide mononitrate ER 30 mg PO DAILY lisinopril 2.5 mg PO DAILY metformin ER 500 mg PO DAILY 90 days multivitamin 1 tab PO DAILY pantoprazole 40 mg PO DAILY 3 months rosuvastatin 40 mg PO DAILY Tobacco use date assessed: 06/23/23 HPI ear wax removal HPI Details 88-year-old lady here today complaining of decreased hearing in both ears right more than the left. She knows that she has being cerumen in both ears, has been applying the Dix several min removal for the last several days. [facility] Medical History Chronic allergic rhinitis Asthma CKD (chronic kidney disease) Encounter for general adult medical examination with abnormal findings Keratoma Onychomycosis Dyspnea Hypoxia ILD (interstitial lung disease) Chronic restrictive lung disease Nocturnal hypoxia First degree AV block Sinus bradycardia Type 2 diabetes mellitus without complication, without long-term current use of insulin Vitamin deficiency Anemia Hx of aortic valve stenosis CAD (coronary artery disease) Dyslipidemia Essential hypertension Diabetes mellitus with hyperglycemia, without long-term current use of insulin Hx of cataract Surgical History Hx of coronary artery bypass graft Hx of carpal tunnel repair Hx of total hysterectomy Hx of knee surgery Hx of CABG Hx of aortic valve replacement Hx of cholecystectomy Family History Sister Colon cancer, Onset Age: 94 Sister Breast cancer, Onset Age: 73 Father Lung cancer Mother CAD (coronary artery disease) Myocardial infarction acute, Onset Age: 84 Other No significant family history Social History Housing: House Alcohol intake: never Patient Tobacco Use Status: Former Tobacco user Quit Date: 1989 Tobacco use type: Cigarette Years Smoked: 43 e-Cigarette/Vaping Use: Never Used Second Hand Smoke Exposure: No Current occupational status: retired Cognitive needs: No Hearing needs: No Vision needs: Yes Questionnaire Thrive Questionnaire Date Thrive assessed: 01/25/22 ANTHONY-7 AMB Questionnaire ANTHONY-7 Date ANTHONY - 7 assessed: 01/25/22 Source: Developed by Drs. Ming Contreras, Greta Loco, Diaz Pa and colleagues, with an educational carlos from [employer]. Review of Systems Const All systems reviewed & are unremarkable except as noted in HPI and below Physical exam (Primary Care) Vital Signs: Last Vital Signs Pulse 77 06/27/23 13:42 BP 160/74 H 06/27/23 13:42 Pulse Ox 93 06/27/23 13:42 Oxygen Delivery Method Room Air 06/27/23 13:42 BMI result Body Mass Index 25.9 Tobacco/Smoking Status: Tobacco use Status Tobacco use date assessed 06/23/23 06/27/23 13:48 Patient Tobacco Use Status Former Tobacco user 06/27/23 13:48 Tobacco use type Cigarette 06/27/23 13:48 e-Cigarette/Vaping Use Never Used 06/27/23 13:48 Thrive Assessment: Date of Thrive Assessment Date Thrive assessed 01/25/22 06/27/23 13:48 Const Other: Printed x3, ambulatory normal gait, no acute cardiorespiratory distress noted HENMT Ears: Abnormal EAC present cerumen impaction bilateral and hearing grossly impaired Assessment and Plan Assessment & Plan (1) Impacted cerumen of both ears: Code(s): H61.23 - Impacted cerumen, bilateral Plan: Successful removal of Cerumen done, through here vision of both ears with warm saline, patient tolerated procedure well. Medications: Changed From fluticasone propionate 50 mcg/actuation intranasal To fluticasone propionate 50 mcg/actuation 1 spray intranasal DAILY 16 grams 0RF Coding Level of Care Code Est Pt Level 3 (63715) Diagnoses Impacted cerumen of both ears H61.23
== END 2023-06-27 14:46 | disposition home or self-care (01) ==
PROVIDERS: PCP Internal Medicine; Visit Provider Internal Medicine
DX: H61.23 Impacted cerumen, bilateral (principal)
CPT/HCPCS: 99213

== ENCOUNTER 2023-10-31 08:23 | Outpatient (REF) | payer MEDICARE, SELFPAY ==
[2023-10-31 11:19] LABS: MANUAL DIFF FLAG NO
[2023-10-31 11:30] LABS: Basophils Percent Auto 0.3 % (0-2); Eosinophils Absolute Auto 0.4 X10*3/uL (0.0-0.4); Eosinophils Percent Auto 5.9 % (0-4); Hematocrit 37.7 % (37.0-47.0); Hemoglobin 11.9 g/dl (12.0-16.0); Imm Gran Abs Auto 0.01 X10*3/uL (0.00-0.03); Imm Gran Pct Auto 0.1 % (0.0-0.4); Lymphocytes Absolute Auto 2.4 X10*3/uL (1.2-4.9); Lymphocytes Percent Auto 32.4 % (20-40); Mean Corpuscular HGB Conc 31.6 g/dl (31.0-35.0); Mean Corpuscular Hemoglobin 30.2 pg (27.0-33.0); Mean Corpuscular Volume 95.7 fL (80.0-98.0); Mean Platelet Volume 9.9 fL (9.4-12.3); Monocytes Absolute Auto 0.5 X10*3/uL (0.1-1.2); Monocytes Percent Auto 6.5 % (2-11); Neutrophils Absolute Auto 4.1 x10*3/uL (2.0-8.3); Neutrophils Percent Auto 54.8 % (45-73); Platelet Count 227 X10*3/uL (160-400); Red Blood Count 3.94 X10*6/uL (4.20-5.50); Red Cell Distribution Width 13.9 % (11.0-16.0); White Blood Count 7.4 X10*3/uL (4.8-10.8)
[2023-10-31 11:36] LABS: Estimated Average Glucose 128 mg/dL; Hemoglobin A1c % 6.1 % (<6.0)
[2023-10-31 11:54] LABS: Alanine Aminotransferase 16 U/L (0-31); Anion Gap 16 (12-20); Aspartate Amino Transferase 32 U/L (5-31); Blood Urea Nitrogen 21 mg/dL (9-16); Calcium 9.9 mg/dL (8.4-10.2); Carbon Dioxide 23 mmol/L (22-29); Chloride 106 mmol/L (96-108); Cholesterol 160 mg/dL (<200); Estimated Glomerular Filt Rate 54; Glucose Fasting 75 mg/dL (60-99); HDL Cholesterol 66 mg/dL (>40); Iron 83 mcg/dL (30-160); LDL Cholesterol Calculated 82 mg/dL (<100); Percent Iron Saturation 36 % (15-50); Potassium 5.6 mmol/L (3.3-5.1); Sodium 139 mmol/L (135-145); Total Iron Binding Capacity 228 mcg/dL (228-428); Triglycerides 62 mg/dL (<150); Unsaturated Iron Binding 145 ug/dL
[2023-10-31 12:04] LABS: Vitamin D 25-OH Total 21.8 ng/mL (>30)
[2023-10-31 12:41] LABS: Creatinine Urine 85.57 mg/dL; Microalbum/Creatinine Ratio Ur 33.8 ug/mg cr (<30)
== END 2023-10-31 08:24 | disposition home or self-care (01) ==
LOC: HO.HMGCLDS 08:23
PROVIDERS: PCP Internal Medicine; Visit Provider Internal Medicine
DX: I12.9 Hypertensive chronic kidney disease with stage 1 through stage 4 chronic kidney disease, or unspecified chronic kidney disease (principal); E11.22 Type 2 diabetes mellitus with diabetic chronic kidney disease; N18.9 Chronic kidney disease, unspecified; E56.9 Vitamin deficiency, unspecified; D63.1 Anemia in chronic kidney disease; I25.10 Atherosclerotic heart disease of native coronary artery without angina pectoris; E78.5 Hyperlipidemia, unspecified; N95.9 Unspecified menopausal and perimenopausal disorder; J84.9 Interstitial pulmonary disease, unspecified; Z95.2 Presence of prosthetic heart valve
CPT/HCPCS: 36415; 80048; 80061; 82043; 82306; 82570; 83036; 83540; 84450; 84460; 85025

== ENCOUNTER 2023-12-05 11:08 | Outpatient (REF) | payer MEDICARE, SELFPAY ==
--- NOTE | ~2023-12-05 | XR_ITS ---
EXAMINATION: XR CHEST CLINICAL INFORMATION: Interstitial pulmonary disease. COMPARISON: December 31, 2022. TECHNIQUE: 2 views of the chest were obtained. FINDINGS: Dextroscoliosis with multilevel degenerative changes in the thoracic spine. Median sternotomy wires. Aortic valve prosthesis redemonstrated. Lungs remain well-inflated with redemonstration of extensive diffuse interstitial opacities. No pleural effusion. No new focal consolidation to suggest pneumonia. Heart size within normal limits. XR/XR chest 2V IMPRESSION: Redemonstration of extensive diffuse interstitial opacities. No new focal consolidation to suggest pneumonia.
== END 2023-12-05 11:09 | disposition home or self-care (01) ==
LOC: HO.XRAY 11:08
PROVIDERS: PCP Internal Medicine; Visit Provider Hospitalist
DX: J84.9 Interstitial pulmonary disease, unspecified (principal); J98.4 Other disorders of lung; R09.02 Hypoxemia; R06.09 Other forms of dyspnea; J45.40 Moderate persistent asthma, uncomplicated; J30.9 Allergic rhinitis, unspecified
CPT/HCPCS: 71046; 99212

== ENCOUNTER 2023-12-05 11:08 | Outpatient (AMB) | payer MEDICARE, SELFPAY ==
[2023-12-05 11:26] VITALS: PULSE 71; O2SAT 97; BMI 26.1
--- NOTE | 2023-12-05 11:26 | MHC.OFFVIS ---
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 She is status post cardiac bypass surgery many years ago. Apparently she has been developing worsening shortness of breath and also was admitted to [facility] with a presyncopal episode. While she was there she did have an x-ray demonstrating reticular changes at the bases suggesting some degree of interstitial lung disease. The patient was then seen by Cardiology and her metoprolol was stopped. She was subsequently discharged from the hospital. She did undergo pulmonary function studies which were personally by me demonstrating no obstructive ventilatory defect. Although, she did have a restrictive process likely from the interstitial lung disease. In addition to that the patient does have a moderate diffusion impairment. During the visit we did go for brief walking oximetry for 6 minutes. The patient did desaturate down to about 90%. Although she did not qualify for oxygen. during the 6 minute walk test the patient did also become tachycardic up to 130 beats per minute. Her dyspnea score was 8/10 in severity. She did not chest pain. Therefore, we will have her undergo blood work and will require additional imaging studies. 12/28/2021 the patient is here for a pulmonary follow-up visit. Overall she is doing well. Still having dyspnea on exertion. She did not qualify for oxygen during the last visit. We did an overnight oximetry and the patient was able to maintain a pulse ox within normal for most of the night. In addition to that we did look at her chest x-ray demonstrating interstitial lung disease which Corresponds to her abnormal pulmonary function studies with restrictive ventilatory defect. She continues on Symbicort with good effect. Will continue to monitor her chest x-ray changes to make sure that they are not progressing. 06/27/2022 the patient is here for a pulmonary follow-up visit. Overall she continues to do well. She is able to do her activities of daily living. The patient does travel back and forth to [place]. Her breathing usually gets worse during the heat and humidity. Currently she is doing better at this time. She has been having issues with her Symbicort. The carbajal when up and now is too expensive for her. will plan to call her pharmacy and see if Advair HFA a will be a better carbajal. if not then will consider using the Good Rx card and prescribed AirDuo for much lower carbajal of 30 dollars a month. No recent imaging studies. 12/05/2023 The patient is here for a pulmonary follow up visit. Overall, doing better. The Advair HFA works very well for her. Having increasing allergy symptoms now in the spring. complaining of worsening nasal congestion and post nasal drip. Moderate in severity. She does take claritin. We will add Singulair at this time. Denies any worsening dyspnea on exertion. She does have crackles on exam consistent with her history of ILD. Her last CXR was back on 10/2021. She will have a CXR today. [facility] Medical History Chronic allergic rhinitis Asthma CKD (chronic kidney disease) Encounter for general adult medical examination with abnormal findings Keratoma Onychomycosis Dyspnea Hypoxia ILD (interstitial lung disease) Chronic restrictive lung disease Nocturnal hypoxia First degree AV block Sinus bradycardia Type 2 diabetes mellitus without complication, without long-term current use of insulin Vitamin deficiency Anemia Hx of aortic valve stenosis CAD (coronary artery disease) Dyslipidemia Essential hypertension Diabetes mellitus with hyperglycemia, without long-term current use of insulin Hx of cataract Surgical History Hx of coronary artery bypass graft Hx of carpal tunnel repair Hx of total hysterectomy Hx of knee surgery Hx of CABG Hx of aortic valve replacement Hx of cholecystectomy Family History Sister Colon cancer, Onset Age: 94 Sister Breast cancer, Onset Age: 73 Father Lung cancer Mother CAD (coronary artery disease) Myocardial infarction acute, Onset Age: 84 Other No significant family history Social History Housing: House Alcohol intake: never Patient Tobacco Use Status: Former Tobacco user Quit Date: 1989 Tobacco use type: Cigarette Years Smoked: 43 e-Cigarette/Vaping Use: Never Used Second Hand Smoke Exposure: No Current occupational status: retired Cognitive needs: No Hearing needs: No Vision needs: Yes Review of Systems Const Denies weakness ENT Reports dizziness, Reports nasal congestion, Reports nasal discharge and Reports post nasal drip Card Denies chest pain, Denies chest pain with activity, Denies leg edema, Reports lightheadedness, Denies palpitations and Reports dyspnea on exertion Resp Reports cough, Reports dyspnea on exertion and Denies wheezing GI Denies hematochezia and Denies change in stool character Musc Denies abnormal gait, Denies muscle weakness, Denies numbness, Denies radiating pain into limb and Denies tingling Skin/Breast Denies rash Neuro Denies abnormal gait, Reports dizziness, Denies numbness, Denies tingling and Denies weakness Endo Denies palpitations Aller/Immun Denies wheezing Physical Exam Vital Signs: Last Vital Signs Pulse 71 12/05/23 11:26 Pulse Ox 97 12/05/23 11:26 Oxygen Delivery Method Room Air 12/05/23 11:26 BMI result Body Mass Index 26.1 Const General: alert Neck Neck: Yes normal visual inspection, Yes full ROM and Yes no lymphadenopathy Chest Chest palpation & inspection: normal inspection of the chest Resp Auscultation: crackles and diminished lung sounds Cardio Rate: regular rate Rhythm: regular rhythm Heart sounds: S1 normal heart sound present and S2 normal heart sound present GI Palpation (GI): Soft to palpation and nontender Auscultation: normal bowel sounds Skin General skin exam: rashes and/or lesions noted Assessment & Plan Assessment & Plan (1) ILD (interstitial lung disease): Code(s): J84.9 - Interstitial pulmonary disease, unspecified (2) Chronic restrictive lung disease: Code(s): J98.4 - Other disorders of lung (3) Hypoxia: Code(s): R09.02 - Hypoxemia (4) Dyspnea: Code(s): R06.00 - Dyspnea, unspecified Qualifiers: Dyspnea type: dyspnea on exertion Qualified Code(s): R06.09 - Other forms of dyspnea (5) Asthma: Code(s): J45.909 - Unspecified asthma, uncomplicated Qualifiers: Asthma severity: moderate Asthma persistence: persistent Asthma complication type: uncomplicated Qualified Code(s): J45.40 - Moderate persistent asthma, uncomplicated (6) Chronic allergic rhinitis: Code(s): J30.9 - Allergic rhinitis, unspecified Plan continue Advair HFA short-acting beta agonist as needed continue reflux therapy reflux diet continue Claritin start Singulair at night CXR follow-up in 12 months Orders: Orders XR chest 2V 12/05/23 J84.9 - Interstitial pulmonary disease, unspecified Medications: New montelukast (Singulair) 10 mg PO BEDTIME 90 tabs 3RF 90 days J45.909 - Unspecified asthma, uncomplicated Coding Level of Care Code Est Pt Level 4 (01373) Diagnoses ILD (interstitial lung disease) J84.9 Chronic restrictive lung disease J98.4 Hypoxia R09.02 Dyspnea on exertion R06.09 Dyspnea type: dyspnea on exertion Moderate persistent asthma without complication J45.40 Asthma severity: moderate Asthma persistence: persistent Asthma complication type: uncomplicated Chronic allergic rhinitis J30.9 Time Spent (min) 17
== END 2023-12-05 11:52 | disposition home or self-care (01) ==
PROVIDERS: PCP Internal Medicine; Visit Provider Hospitalist
DX: J84.9 Interstitial pulmonary disease, unspecified (principal); J98.4 Other disorders of lung; R09.02 Hypoxemia; R06.09 Other forms of dyspnea; J45.40 Moderate persistent asthma, uncomplicated; J30.9 Allergic rhinitis, unspecified
CPT/HCPCS: 99214

== ENCOUNTER 2024-07-14 09:15 | Outpatient (REF) | payer MEDICARE, SELFPAY ==
[2024-07-14 10:29] LABS: MANUAL DIFF FLAG NO
[2024-07-14 10:42] LABS: Basophils Percent Auto 0.4 % (0-2); Eosinophils Absolute Auto 0.3 X10*3/uL (0.0-0.4); Eosinophils Percent Auto 4.2 % (0-4); Hematocrit 36.2 % (37.0-47.0); Hemoglobin 11.6 g/dl (12.0-16.0); Imm Gran Abs Auto 0.01 X10*3/uL (0.00-0.03); Imm Gran Pct Auto 0.1 % (0.0-0.4); Lymphocytes Absolute Auto 2.3 X10*3/uL (1.2-4.9); Mean Corpuscular Hemoglobin 31.1 pg (27.0-33.0); Mean Corpuscular Volume 97.1 fL (80.0-98.0); Mean Platelet Volume 9.8 fL (9.4-12.3); Monocytes Absolute Auto 0.5 X10*3/uL (0.1-1.2); Monocytes Percent Auto 6.6 % (2-11); Neutrophils Absolute Auto 4.3 x10*3/uL (2.0-8.3); Neutrophils Percent Auto 57.7 % (45-73); Platelet Count 229 X10*3/uL (160-400); Red Blood Count 3.73 X10*6/uL (4.20-5.50); Red Cell Distribution Width 13.7 % (11.0-16.0); White Blood Count 7.5 X10*3/uL (4.8-10.8)
[2024-07-14 11:31] LABS: Estimated Average Glucose 131 mg/dL; Hemoglobin A1C 253.9008 umol/L; Hemoglobin A1c % 6.2 % (<6.0); Total Hemoglobin (HGBA1C) 5695.0328 umol/L
[2024-07-14 11:46] LABS: Alanine Aminotransferase 13 U/L (0-31); Anion Gap 16 (12-20); Aspartate Amino Transferase 34 U/L (5-31); Blood Urea Nitrogen 30 mg/dL (9-16); Calcium 9.5 mg/dL (8.4-10.2); Carbon Dioxide 22 mmol/L (22-29); Chloride 106 mmol/L (96-108); Cholesterol 145 mg/dL (<200); Estimated Glomerular Filt Rate 38; Glucose Fasting 78 mg/dL (60-99); HDL Cholesterol 65 mg/dL (>40); Iron 67 mcg/dL (30-160); LDL Cholesterol Calculated 67 mg/dL (<100); Percent Iron Saturation 31 % (15-50); Sodium 139 mmol/L (135-145); Total Iron Binding Capacity 214 mcg/dL (228-428); Triglycerides 67 mg/dL (<150); Unsaturated Iron Binding 147 ug/dL
[2024-07-14 12:03] LABS: Vitamin D 25-OH Total 20.2 ng/mL (>30)
== END 2024-07-14 09:16 | disposition home or self-care (01) ==
LOC: HO.HMGCLDS 09:15
PROVIDERS: PCP Internal Medicine; Visit Provider Internal Medicine
DX: N18.9 Chronic kidney disease, unspecified (principal); E11.9 Type 2 diabetes mellitus without complications; D64.9 Anemia, unspecified; I25.10 Atherosclerotic heart disease of native coronary artery without angina pectoris; E78.5 Hyperlipidemia, unspecified; I10 Essential (primary) hypertension
CPT/HCPCS: 36415; 80048; 80061; 82306; 83036; 83540; 84450; 84460; 85025

== ENCOUNTER 2024-07-15 08:27 | Outpatient (AMB) | payer MEDICARE, SELFPAY ==
[2024-07-15 08:35] VITALS: BP 150/80; PULSE 78; O2SAT 95; BMI 28.1
--- NOTE | 2024-07-15 08:35 | MHC.PC.OV ---
Vital Signs 07/15/24 08:35 07/15/24 09:33 Height 4 ft 11 in Weight 139 lb BMI 28.1 BP 150/80 H 140/80 H Blood Pressure Location Lt brachial Lt brachial Position Sitting Sitting Pulse 78 Pulse Source Pulse Oximeter Pulse Oximetry (%) 95 Oxygen Delivery Method Room Air Intake Visit Reasons: annual exam Intake Note: Pt is here today for her PE: Last bone density scan 05/20/23 Allergies No Known Allergies Allergy (Verified 07/18/24 15:47) Medication List - Last Reconciled 07/18/24 by Floresita Mora MD albuterol sulfate 90 mcg/actuation 2 inhalations inhalation QID PRN ascorbate calcium (vitamin C) 500 mg PO DAILY aspirin (Ecotrin Low Strength) 81 mg PO DAILY cholecalciferol (vitamin D3) 125 mcg PO DAILY ferrous sulfate (FeroSul) 325 mg PO DAILY fluticasone propion-salmeterol 115-21 mcg/actuation (Advair HFA) 2 puffs inhalation Q12H 90 days fluticasone propionate 50 mcg/actuation 1 spray intranasal DAILY furosemide 20 mg PO QAM PRN isosorbide mononitrate ER 30 mg PO DAILY lisinopril 2.5 mg PO DAILY metformin ER 500 mg PO DAILY 90 days montelukast (Singulair) 10 mg PO BEDTIME 90 days multivitamin 1 tab PO DAILY rosuvastatin 40 mg PO DAILY Tobacco use date assessed: 07/15/24 Fall risk assessment: No Falls in past year Last assessed Fall Risk: 07/15/24 Dental Screening Dental Screen Date: 07/15/24 Did you have a dental visit in the last 12 months?: Yes Did you have a dental problem in the last 6 months where you did not have access to dental care?: Yes Was dental information given to patient?: Patient has dentist HPI annual exam HPI Details 89-year-old lady with history of coronary artery disease and previous bypass surgery , history of aortic valve stenosis s/p aortic valve replacement, interstitial lung disease not require supplemental oxygen, dyslipidemia, hypertension, and type 2 diabetes mellitus, here today for physical exam. Patient states that she has been feeling well, with no complaints at present time. Diabetes mellitus controlled on metformin, up-to-date with her diabetes retinopathy screening, with presence of proliferative diabetic retinopathy OD. Up-to-date with her diabetes foot exam, seen earlier this year by her director of recruitment. ON LICENSE OF [facility] Medical History (Updated 07/15/24 @ 09:26 by Floresita Mora MD) Vitamin D deficiency Chronic allergic rhinitis Asthma CKD (chronic kidney disease) Encounter for general adult medical examination with abnormal findings Keratoma Onychomycosis Dyspnea Hypoxia ILD (interstitial lung disease) Chronic restrictive lung disease Nocturnal hypoxia First degree AV block Sinus bradycardia Type 2 diabetes mellitus without complication, without long-term current use of insulin Vitamin deficiency Anemia Hx of aortic valve stenosis CAD (coronary artery disease) Dyslipidemia Essential hypertension Diabetes mellitus with hyperglycemia, without long-term current use of insulin Hx of cataract Surgical History Hx of coronary artery bypass graft Hx of carpal tunnel repair Hx of total hysterectomy Hx of knee surgery Hx of CABG Hx of aortic valve replacement Hx of cholecystectomy Family History Sister Colon cancer, Onset Age: 94 Sister Breast cancer, Onset Age: 73 Father Lung cancer Mother CAD (coronary artery disease) Myocardial infarction acute, Onset Age: 84 Other No significant family history Social History Housing: House Alcohol intake: never Patient Tobacco Use Status: Former Tobacco user Tobacco use type: Cigarette Years Smoked: 43 e-Cigarette/Vaping Use: Never Used Second Hand Smoke Exposure: No Current occupational status: retired Cognitive needs: No Hearing needs: No Vision needs: Yes Questionnaire PHQ-9 Over the last 2 weeks, how often have you been bothered by any of the following problems? 1. Little interest or pleasure in doing things: not at all 2. Feeling down, depressed, or hopeless: not at all 3. Trouble falling or staying asleep, or sleeping too much: not at all 4. Feeling tired or having little energy: not at all 5. Poor appetite or overeating: not at all 6. Feeling bad about yourself - or that you are a failure or have let yourself or your family down: not at all 7. Trouble concentrating on things, such as reading the newspaper or watching television: not at all 8. Moving or speaking so slowly that other people could have noticed. Or the opposite - being so fidgety or restless that you have been moving around a lot more than usual: not at all 9. Thoughts that you would be better off or of hurting yourself in some way: not at all Total score: 0 Depression Screening Interpretation: Negative Depression Screening Done: Yes 28392 - PHQ-9 Billing: Yes Source: Developed by Drs. Ming Contreras, Greta Loco, Diaz Pa and colleagues, with an educational carlos from [employer]. Thrive Questionnaire Date Thrive assessed: 07/15/24 I am a: Patient What is your living situation today?: I have a steady place to live Within the past 12 months, did the food you bought not last and you didn't have the money to get more?: I choose not to answer this question Within the past 12 months, did you worry whether your food would run out before you got money to buy more?: Never true Do you have trouble paying for medicines?: No Do you have trouble getting transportation to medical appointments?: No Do you have trouble paying your heating and electricity bill?: No Do you have trouble taking care of your child, family member or friend?: No Do you have trouble with day-to-day activities such as bathing, preparing meals, shopping, managing finances, etc.?: No Are you currently unemployed and looking for a job?: No Are you interested in more education?: No Please select the resources that you would like help with: None Currently or been in a relationship where the following occur: I choose not to answer THRIVE Score: 0 AUDIT C Alcohol Use Questionnaire (AUDIT-C) 3. How often do you have six or more drinks on one occasion?: Never Total Score: 0 ANTHONY-7 AMB Questionnaire ANTHONY-7 Date ANTHONY - 7 assessed: 01/25/22 Feeling nervous, anxious, or on edge: 0 = Not at all Not being able to stop or control worryin = Not at all Worrying too much about different things: 0 = Not at all Trouble relaxin = Not at all Being so restless that it is hard to sit still: 0 = Not at all Becoming easily annoyed or irritable: 0 = Not at all Feeling afraid as if something awful might happen: 0 = Not at all Total ANTHONY-7 score (0-4 normal; 5-9 mild; 10-14 moderate; 15-21 severe): 0 Source: Developed by Drs. Ming Contreras, Greta Loco, Diaz Pa and colleagues, with an educational carlos from [employer]. ANTHONY-7 Assessment Billing ANTHONY-7 Assessment Tool: ANTHONY-7 Assessment 92959 Review of Systems Const Denies weakness Eyes Details: Up-to-date with the diabetes retinopathy screening, goes to [facility] with proliferative diabetic retinopathy OD Reports no additional complaints ENT Reports dizziness, Reports nasal congestion, Reports nasal discharge and Reports post nasal drip Card Denies chest pain, Denies chest pain with activity, Denies leg edema, Reports lightheadedness, Denies palpitations and Reports dyspnea on exertion Resp Reports cough, Reports dyspnea on exertion and Denies wheezing GI Denies hematochezia and Denies change in stool character Reports no additional complaints Musc Denies abnormal gait, Denies muscle weakness, Denies numbness, Denies radiating pain into limb and Denies tingling Skin/Breast Denies rash Neuro Denies abnormal gait, Reports dizziness, Denies numbness, Denies tingling and Denies weakness Psych Reports no additional complaints Endo Denies palpitations Sagar/Lymph Reports no additional complaints Aller/Immun Denies wheezing Physical exam (Primary Care) Vital Signs: Last Vital Signs Pulse 78 07/15/24 08:35 BP 140/80 H 07/15/24 09:33 Pulse Ox 95 07/15/24 08:35 Oxygen Delivery Method Room Air 07/15/24 08:35 BMI result Body Mass Index 28.1 Tobacco/Smoking Status: Tobacco use Status Tobacco use date assessed 07/15/24 07/15/24 08:36 Patient Tobacco Use Status Former Tobacco user 07/15/24 08:36 Tobacco use type Cigarette 07/15/24 08:36 e-Cigarette/Vaping Use Never Used 07/15/24 08:36 PHQ-9: PHQ-9 Score PHQ-9: Total score 0 07/16/24 16:30 Depression Screening Interpretation: Negative Thrive Assessment: Date of Thrive Assessment Date Thrive assessed 07/15/24 07/15/24 09:06 Currently or been in a relationship where the following occur: I choose not to answer Const General: comfortable, no acute distress and alert Orientation/consciousness: patient oriented x3 HENMT Ears: external ears normal General nose exam: Normal external nose present and No nasal discharge present Mouth: Normal oral and palatal mucosa present, oropharynx normal and moist mucous membranes Eyes General: appearance normal, both eyes and all related structures Neck Neck: Yes full ROM, Yes no lymphadenopathy and Yes supple Resp Effort & Inspection: normal respiratory effort and able to speak in complete sentences Auscultation: clear to auscultation bilaterally Cardio Rate: regular rate Rhythm: regular rhythm Heart sounds: S1 normal heart sound present and S2 normal heart sound present GI Palpation (GI): Soft to palpation, nontender and no masses Auscultation: normal bowel sounds General: Yes no CVA tenderness Back/Spine/Pelvis Back: no CVA tenderness and No back tenderness Skin General skin exam: no rashes or lesions noted Neuro General: patient oriented x3, tone normal, moves all extremities, Normal light touch and pain sensation and no focal motor deficits Cranial nerves: Yes CN's II-XII intact bilaterally Cognition (Neuro): normal cognition Extrem General: Yes full ROM, Yes no joint enlargement, Yes no clubbing, cyanosis or edema and Yes no calf tenderness Psych Appearance: grossly normal and well kempt Mental Status: mental status grossly normal Speech and movement: Normal speech and movement present Affect: normal affect Attitude: cooperative Thought process: Normal thought process present Thought content: Normal thought content present Results Reviewed Results Reviewed: Laboratory Tests 07/14/24 09:20 Estimat Average Glucose 131 Hemoglobin A1c % 6.2 H Name: Stephanie Fernandez Age/Sex: 89/F : 1935 Unit#: [id number] Attend Dr: Floresita Mora MD Re07/14/24 Status: DEP REF Location: [facility] Disch: SPEC : [id number] BETHEL: 07/14/24 STATUS: COMP REQ : [id number] RECD: 07/14/24-[address]: Floresita Mora MD COMP: 07/14/24 ENTERED: 07/14/[address]: ORDERED: Met Prof Fast, IRON PROF, AST, ALT, Lipid Panel, Vitamin D 25-OH Test Result Flag Reference Sodium 139 135-145 mmol/L Potassium 5.0 3.3-5.1 mmol/L CL 106 96-108 mmol/L CO2 22 22-29 mmol/L Gap 16 12-20 BUN 30 H 9-16 mg/dL Creat 1.31 0.5-1.4 mg/dL eGFR 38 Chronic Kidney Disease: Estimated GFR < 60 mL/min/1.73m2 Severe Kidney Disease: Estimated GFR < 15 mL/min/1.73m2 FBS 78 60-99 mg/dL CA 9.5 8.4-10.2 mg/dL Iron 67 30-160 mcg/dL TIBC 214 L 228-428 mcg/dL Saturation 31 15-50 % UIBC 147 ug/dL AST (GOT) 34 H 5-31 U/L ALT (GPT) 13 0-31 U/L Triglyceride 67 <150 mg/dL Desirable Triglyceride: less than 150 mg/dL Borderline High Triglyceride 150-199 mg/dL High Triglyceride: 200-499 mg/dL Very High Triglyceride: greater than or equal to 5OO mg/dL Cholesterol 145 <200 mg/dL Desirable Cholesterol: less than 200 mg/dL Borderline High Cholesterol: 200-239 mg/dL High Cholesterol: greater than 239 mg/dL LDL Calculated 67 <100 mg/dL Desirable LDL: less than 100 mg/dL Near Optimal/Above Optimal LDL: 110-129 mg/dL Borderline High LDL: 130-159 mg/dL High LDL: 160-189 mg/dL Very High LDL: greater than or equal to 190 mg/dL HDL 65 >40 mg/dL Desirable HDL: greater than 40 mg/dL Note: This HDL assay may give artificially low results in patients with liver disease. Vit D 25-OH Tot 20.2 L >30 ng/mL Health Based Reference Values* < 20 ng/mL Deficient 20-30 ng/mL Insufficient > 30 ng/mL Sufficient Coding Level of Care Code Est Pt Prev Care >65y(99432) Diagnoses Annual visit for general adult medical examination with abnormal findings Z00.01 Type 2 diabetes mellitus without complication, without long-term current use of insulin E11.9 Dyslipidemia E78.5 CKD (chronic kidney disease) N18.9 Essential hypertension I10 Vitamin D deficiency E55.9 CAD (coronary artery disease) I25.10 Additional Codes PHQ-9 - 26978 - PHQ-9 Billing: Yes ([id number]) ANTHONY-7 Assessment Billing - ANTHONY-7 Assessment Tool: ANTHONY-7 Assessment 62011 ([id number]) Assessment & Plan Assessment & Plan (1) Annual visit for general adult medical examination with abnormal findings: Code(s): Z00.01 - Encounter for general adult medical examination with abnormal findings Plan: Recent fasting lab results reviewed with patient.. Up-to-date with her diabetes retinopathy screening,. No longer gets screening mammograms were colonoscopy, but had a normal bone density scan done last year. She is up-to-date with her pneumococcal vaccination, reminded to get her yearly flu vaccine, and COVID booster, but does not want to get the shingles vaccine anymore. (2) Type 2 diabetes mellitus without complication, without long-term current use of insulin: Code(s): E11.9 - Type 2 diabetes mellitus without complications Category: Medical Plan: Recent lab results reviewed with patient, with sugar and hemoglobin A1c stable and at goal . Continue metformin ER 500 mg once a day continue to check fasting blood sugar at home, maintain log and bring to next appointment for review. Reinforced diabetic diet and regular exercise with patient. Up-to-date with her yearly diabetes retinopathy screening. Patient advised to inspect feet daily, for any signs of injury, callus or infection, up-to-date with her podiatry consult for this year. (3) Dyslipidemia: Code(s): E78.5 - Hyperlipidemia, unspecified Category: Medical Plan: Reviewed recent fasting lipid profile with patient with levels within normal limits . Continue rosuvastatin 40 mg daily , in addition to adherence to low-cholesterol diet and regular exercise, at least 30 minutes 3 to 4 times a week. Advised patient to make healthy food choices, eat more fruits, vegetables, whole grains, wild caught fish and low-fat dairy. Limit amount of meat and fried or fatty food products, as well as processed foods and fast foods. (4) CKD (chronic kidney disease): Code(s): N18.9 - Chronic kidney disease, unspecified Category: Medical Plan: Continue with lisinopril 2.5 mg daily, avoidance of NSAIDs . Noted to have decreasing renal function and decreased GFR on this visit. Will repeat another basic metabolic panel in a month. Advised to stay well-hydrated. Will need to stop metformin if decreasing GFR continues. (5) Essential hypertension: Code(s): I10 - Essential (primary) hypertension Category: Medical Plan: Continued on lisinopril 2.5 mg daily (6) Vitamin D deficiency: Code(s): E55.9 - Vitamin D deficiency, unspecified Category: Medical Plan: Prescription sent for vitamin-D 325 mg taken once a day (7) CAD (coronary artery disease): Code(s): I25.10 - Atherosclerotic heart disease of [place] coronary artery without angina pectoris Category: Medical Plan: Followed by cardiology, continued on aspirin, lisinopril and isosorbide Orders: Orders Basic Metabolic Panel Fasting 08/02/24 E11.9 - Type 2 diabetes mellitus without complications, N18.9 - Chronic kidney disease, unspecified Microalbumin, Random (w Creat) 08/02/24 E11.9 - Type 2 diabetes mellitus without complications, N18.9 - Chronic kidney disease, unspecified Medications: New cholecalciferol (vitamin D3) 125 mcg PO DAILY 90 caps 1RF E55.9 - Vitamin D deficiency, unspecified
[2024-07-15 09:33] VITALS: BP 140/80
== END 2024-07-15 14:46 | disposition home or self-care (01) ==
PROVIDERS: PCP Internal Medicine; Visit Provider Internal Medicine
DX: Z00.00 Encounter for general adult medical examination without abnormal findings (principal); I12.9 Hypertensive chronic kidney disease with stage 1 through stage 4 chronic kidney disease, or unspecified chronic kidney disease; E11.9 Type 2 diabetes mellitus without complications; N18.9 Chronic kidney disease, unspecified; E78.5 Hyperlipidemia, unspecified; E55.9 Vitamin D deficiency, unspecified; I25.10 Atherosclerotic heart disease of native coronary artery without angina pectoris

== ENCOUNTER → 2024-07-15 08:27 | Outpatient (BNVA) | payer MEDICARE, SELFPAY | PROVIDERS: PCP Internal Medicine; Visit Provider Internal Medicine | DX: Z00.01 Encounter for general adult medical examination with abnormal findings (principal); E78.5 Hyperlipidemia, unspecified; I12.9 Hypertensive chronic kidney disease with stage 1 through stage 4 chronic kidney disease, or unspecified chronic kidney disease; E11.22 Type 2 diabetes mellitus with diabetic chronic kidney disease; N18.9 Chronic kidney disease, unspecified; E55.9 Vitamin D deficiency, unspecified; I25.10 Atherosclerotic heart disease of native coronary artery without angina pectoris | CPT/HCPCS: 96127; 99212; 99397 ==

== ENCOUNTER 2024-08-02 09:12 | Outpatient (REF) | payer MEDICARE, SELFPAY ==
[2024-08-02 14:15] LABS: Anion Gap 13 (12-20); Blood Urea Nitrogen 33 mg/dL (9-16); Calcium 9.9 mg/dL (8.4-10.2); Carbon Dioxide 24 mmol/L (22-29); Chloride 105 mmol/L (96-108); Estimated Glomerular Filt Rate 41; Glucose Fasting 93 mg/dL (60-99); Potassium 4.8 mmol/L (3.3-5.1); Sodium 137 mmol/L (135-145)
[2024-08-02 14:20] LABS: Creatinine Urine 101.58 mg/dL; Microalbum/Creatinine Ratio Ur 21.6 ug/mg cr (<30)
== END 2024-08-02 09:13 | disposition home or self-care (01) ==
LOC: HO.HMGCLDS 09:12
PROVIDERS: PCP Internal Medicine; Visit Provider Internal Medicine
DX: N18.9 Chronic kidney disease, unspecified (principal); E11.9 Type 2 diabetes mellitus without complications
CPT/HCPCS: 36415; 80048; 82043; 82570

== ENCOUNTER 2024-08-03 10:00 | Outpatient (AMB) | payer MEDICARE, SELFPAY ==
--- NOTE | 2024-08-03 10:26 | A.OFFPC_ITS ---
Vital Signs 08/03/24 10:27 Height 4 ft 11 in Weight 133 lb BMI 26.9 BP 130/60 Blood Pressure Location Rt brachial Position Sitting Pulse 76 Pulse Source Pulse Oximeter Pulse Oximetry (%) 96 Oxygen Delivery Method Room Air Intake Visit Reasons: BP check up-ok per dr Contreras Intake Note: Pt is here today for her b/p check Allergies No Known Allergies Allergy (Verified 08/09/24 00:04) Medication List - Last Reconciled 08/09/24 by Floresita Mora MD albuterol sulfate 90 mcg/actuation 2 inhalations inhalation QID PRN ascorbate calcium (vitamin C) 500 mg PO DAILY aspirin (Ecotrin Low Strength) 81 mg PO DAILY cholecalciferol (vitamin D3) 125 mcg PO DAILY cholecalciferol (vitamin D3) 1,250 mcg PO QWEEK 3 months ferrous sulfate (FeroSul) 325 mg PO DAILY fluticasone propion-salmeterol 115-21 mcg/actuation (Advair HFA) 2 puffs inhalation Q12H 90 days fluticasone propionate 50 mcg/actuation 1 spray intranasal DAILY furosemide 20 mg PO QAM PRN isosorbide mononitrate ER 30 mg PO DAILY lisinopril 2.5 mg PO DAILY metformin ER 500 mg PO DAILY 90 days montelukast (Singulair) 10 mg PO BEDTIME 90 days multivitamin 1 tab PO DAILY rosuvastatin 40 mg PO DAILY Tobacco use date assessed: 08/03/24 Fall risk assessment: No Falls in past year Last assessed Fall Risk: 08/03/24 Dental Screening Dental Screen Date: 08/03/24 Did you have a dental visit in the last 12 months?: No Did you have a dental problem in the last 6 months where you did not have access to dental care?: No Was dental information given to patient?: Patient has dentist HPI BP check up-ok per dr Contreras HPI Details The patient is an 89-year-old female presenting for follow-up on her hypertension, well-controlled with lisinopril 2.5 mg daily, and Isosorbide mononitrate , takes furosemide as needed for edema, and Rosuvastatin for hyperlipidemia. Recent laboratory tests revealed anemia with blood iron saturation lower than optimal, despite normal serum iron levels. The hemoglobin count is slightly below normal at 11.6 g/dL, and she has been advised to continue with iron supplementation. Kidney function has shown improvement , the patient has been advised to maintain adequate hydration. Recent evaluations identified a vitamin D deficiency, prompting modification in her treatment regimen to a weekly high-dose vitamin D supplementation. During the examination, impacted cerumen was removed successfully with a curette. [facility] Medical History (Updated 08/09/24 @ 00:11 by Floresita Mora MD) Vitamin D deficiency Chronic allergic rhinitis Asthma CKD (chronic kidney disease) Encounter for general adult medical examination with abnormal findings Keratoma Onychomycosis Dyspnea Hypoxia ILD (interstitial lung disease) Chronic restrictive lung disease Nocturnal hypoxia First degree AV block Sinus bradycardia Type 2 diabetes mellitus without complication, without long-term current use of insulin Vitamin deficiency Anemia Hx of aortic valve stenosis CAD (coronary artery disease) Dyslipidemia Essential hypertension Diabetes mellitus with hyperglycemia, without long-term current use of insulin Hx of cataract Surgical History Hx of coronary artery bypass graft Hx of carpal tunnel repair Hx of total hysterectomy Hx of knee surgery Hx of CABG Hx of aortic valve replacement Hx of cholecystectomy Family History Sister Colon cancer, Onset Age: 94 Sister Breast cancer, Onset Age: 73 Father Lung cancer Mother CAD (coronary artery disease) Myocardial infarction acute, Onset Age: 84 Other No significant family history Social History Housing: House Alcohol intake: never Patient Tobacco Use Status: Former Tobacco user Tobacco use type: Cigarette Years Smoked: 43 e-Cigarette/Vaping Use: Never Used Second Hand Smoke Exposure: No Current occupational status: retired Cognitive needs: No Hearing needs: No Vision needs: Yes Questionnaire Thrive Questionnaire Date Thrive assessed: 03/30/24 I am a: Patient What is your living situation today?: I have a steady place to live Within the past 12 months, did the food you bought not last and you didn't have the money to get more?: I choose not to answer this question Within the past 12 months, did you worry whether your food would run out before you got money to buy more?: Never true Do you have trouble paying for medicines?: No Do you have trouble getting transportation to medical appointments?: No Do you have trouble paying your heating and electricity bill?: No Do you have trouble taking care of your child, family member or friend?: No Do you have trouble with day-to-day activities such as bathing, preparing meals, shopping, managing finances, etc.?: No Are you currently unemployed and looking for a job?: No Are you interested in more education?: No Please select the resources that you would like help with: None Currently or been in a relationship where the following occur: I choose not to answer THRIVE Score: 0 ANTHONY-7 AMB Questionnaire ANTHONY-7 Date ANTHONY - 7 assessed: 01/25/22 Source: Developed by Drs. Ming Contreras, rGeta Loco, Diaz Pa and colleagues, with an educational carlos from [employer]. Review of Systems Const Denies fatigue, Denies headache(s) and Denies weakness ENT Denies dizziness and Denies headache(s) Card Denies chest pain, Denies chest pain with activity, Denies syncope, Denies rapid heart rate, Denies leg edema, Denies lightheadedness, Denies palpitations, Denies dyspnea and Denies dyspnea on exertion Resp Denies cough, Denies dyspnea and Denies dyspnea on exertion GI Denies hematochezia and Denies change in stool character Reports no additional complaints Musc Denies abnormal gait, Denies muscle cramps, Denies muscle weakness, Denies numbness, Denies radiating pain into limb and Denies tingling Neuro Denies abnormal gait, Denies dizziness, Denies syncope, Denies headache(s), Denies numbness, Denies tingling and Denies weakness Psych Reports no additional complaints Endo Denies fatigue and Denies palpitations Sagar/Lymph Denies easy bleeding and Denies easy bruising Physical exam (Primary Care) Vital Signs: Last Vital Signs Pulse 76 08/03/24 10:27 BP 130/60 08/03/24 10:27 Pulse Ox 96 08/03/24 10:27 Oxygen Delivery Method Room Air 08/03/24 10:27 BMI result Body Mass Index 26.9 Tobacco/Smoking Status: Tobacco use Status Tobacco use date assessed 08/03/24 08/03/24 10:30 Patient Tobacco Use Status Former Tobacco user 08/03/24 10:30 Tobacco use type Cigarette 08/03/24 10:30 e-Cigarette/Vaping Use Never Used 08/03/24 10:30 Thrive Assessment: Date of Thrive Assessment Date Thrive assessed 03/30/24 08/03/24 10:30 Currently or been in a relationship where the following occur: I choose not to answer Const General: comfortable, no acute distress and alert Orientation/consciousness: patient oriented x3 HENMT Ears: external ears normal and Abnormal EAC present cerumen impaction bilateral General nose exam: Normal external nose present and No nasal discharge present Mouth: Normal oral and palatal mucosa present, oropharynx normal and moist mucous membranes Eyes General: appearance normal, both eyes and all related structures Neck Neck: Yes full ROM, Yes no lymphadenopathy and Yes supple Resp Effort & Inspection: normal respiratory effort and able to speak in complete sentences Auscultation: clear to auscultation bilaterally Cardio Rate: regular rate Rhythm: regular rhythm Heart sounds: S1 normal heart sound present and S2 normal heart sound present GI Palpation (GI): Soft to palpation, nontender and no masses Auscultation: normal bowel sounds General: Yes no CVA tenderness Back/Spine/Pelvis Back: no CVA tenderness and No back tenderness Skin General skin exam: no rashes or lesions noted Neuro General: patient oriented x3, tone normal, moves all extremities, Normal light touch and pain sensation and no focal motor deficits Cranial nerves: Yes CN's II-XII intact bilaterally Cognition (Neuro): normal cognition Extrem General: Yes full ROM, Yes no joint enlargement, Yes no clubbing, cyanosis or edema and Yes no calf tenderness Psych Appearance: grossly normal and well kempt Mental Status: mental status grossly normal Speech and movement: Normal speech and movement present Affect: normal affect Attitude: cooperative Thought process: Normal thought process present Thought content: Normal thought content present Results Reviewed Results Reviewed: Name: Stephanie Fernandez Age/Sex: 89/F : 1935 Unit#: [id number] Attend Dr: Floresita Mora MD Re08/02/24 Status: DEP [facility] Disch: SPEC : [id number] BETHEL: 08/02/24 STATUS: COMP REQ : [id number] RECD: 08/02/24-[address]: Floresita Mora MD COMP: 08/02/24-1415 ENTERED: 08/02/[address]: ORDERED: Met Prof Fast Test Result Flag Reference Sodium 137 135-145 mmol/L Potassium 4.8 3.3-5.1 mmol/L CL 105 96-108 mmol/L CO2 24 22-29 mmol/L Gap 13 12-20 BUN 33 H 9-16 mg/dL Creat 1.25 0.5-1.4 mg/dL eGFR 41 Chronic Kidney Disease: Estimated GFR < 60 mL/min/1.73m2 Severe Kidney Disease: Estimated GFR < 15 mL/min/1.73m2 FBS 93 60-99 mg/dL CA 9.9 8.4-10.2 mg/dL Laboratory Tests 07/14/24 09:20 Estimat Average Glucose 131 Hemoglobin A1c % 6.2 H Name: Stephanie Fernandez Age/Sex: 89/F : 1935 Unit#: [id number] Attend Dr: Floresita Mora MD Re07/14/24 Status: DEP REF Location: [facility] Di mary: SPEC : [id number] BETHEL: 07/14/24 STATUS: COMP REQ : [id number] RECD: 07/14/24-[address]: Floresita Mora MD COMP: 07/14/24-1203 ENTERED: 07/14/24-[address] [facility] [address]: ORDERED: Met Prof Fast, IRON PROF, AST, ALT, Lipid Panel, Vitamin D 25-OH Test Result Flag Reference Sodium 139 135-145 mmol/L Potassium 5.0 3.3-5.1 mmol/L CL 106 96-108 mmol/L CO2 22 22-29 mmol/L Gap 16 12-20 BUN 30 H 9-16 mg/dL Creat 1.31 0.5-1.4 mg/dL eGFR 38 Chronic Kidney Disease: Estimated GFR < 60 mL/min/1.73m2 Severe Kidney Disease: Estimated GFR < 15 mL/min/1.73m2 FBS 78 60-99 mg/dL CA 9.5 8.4-10.2 mg/dL Iron 67 30-160 mcg/dL TIBC 214 L 228-428 mcg/dL Saturation 31 15-50 % UIBC 147 ug/dL AST (GOT) 34 H 5-31 U/L ALT (GPT) 13 0-31 U/L Triglyceride 67 <150 mg/dL Desirable Triglyceride: less than 150 mg/dL Borderline High Triglyceride 150-199 mg/dL High Triglyceride: 200-499 mg/dL Very High Triglyceride: greater than or equal to 5OO mg/dL Cholesterol 145 <200 mg/dL Desirable Cholesterol: less than 200 mg/dL Borderline High Cholesterol: 200-239 mg/dL High Cholesterol: greater than 239 mg/dL LDL Calculated 67 <100 mg/dL Desirable LDL: less than 100 mg/dL Near Optimal/Above Optimal LDL: 110-129 mg/dL Borderline High LDL: 130-159 mg/dL High LDL: 160-189 mg/dL Very High LDL: greater than or equal to 190 mg/dL HDL 65 >40 mg/dL Desirable HDL: greater than 40 mg/dL Note: This HDL assay may give artificially low results in patients with liver disease. Vit D 25-OH Tot 20.2 L >30 ng/mL Health Based Reference Values* < 20 ng/mL Deficient 20-30 ng/mL Insufficient > 30 ng/mL Sufficient Coding Level of Care Code Est Pt Level 4 (29149) Complex EM visit Add On G2211 Diagnoses Impacted cerumen of both ears H61.23 CKD (chronic kidney disease) N18.9 Type 2 diabetes mellitus without complication, without long-term current use of insulin E11.9 Vitamin deficiency E56.9 Anemia, unspecified type D64.9 Anemia type: unspecified type Dyslipidemia E78.5 Essential hypertension I10 Assessment & Plan Assessment & Plan (1) Impacted cerumen of both ears: Code(s): H61.23 - Impacted cerumen, bilateral Category: Medical (2) CKD (chronic kidney disease): Code(s): N18.9 - Chronic kidney disease, unspecified Category: Medical (3) Type 2 diabetes mellitus without complication, without long-term current use of insulin: Code(s): E11.9 - Type 2 diabetes mellitus without complications Category: Medical (4) Vitamin deficiency: Code(s): E56.9 - Vitamin deficiency, unspecified Category: Medical (5) Anemia: Code(s): D64.9 - Anemia, unspecified Category: Medical Qualifiers: Anemia type: unspecified type Qualified Code(s): D64.9 - Anemia, unspecified (6) Dyslipidemia: Code(s): E78.5 - Hyperlipidemia, unspecified Category: Medical (7) Essential hypertension: Code(s): I10 - Essential (primary) hypertension Category: Medical Plan 1. 5 mg. Blood pressure is stable: - Iron Deficiency Anemia: Continue with iron supplementation as current levels indicate a need for increased blood saturation. - Kidney Function Impairment: Encourage increased water intake, avoid excessive caffeine. - Vitamin D Deficiency: Prescribe high-dose vitamin D (50,000 IU weekly) for three months, then reassess. -diabetes stable and controlled on metformin, continue with current dose -lipids are within normal limits, continue with rosuvastatin 40 mg daily I discussed with the patient the normalcy of her blood pressure reading at 130/60 mmHg and confirmed the stability of her condition with the current medication regimen. We reviewed her recent blood work, noting mild anemia, and decided to maintain current iron supplementation. We discussed her kidney function, emphasizing the importance of hydration and limiting caffeine intake. Regarding her vitamin D deficiency, I explained the need for the high-dose supplementation and clarified dosage instructions. We agreed on a three-month course, with follow-up labs before the next visit in October to monitor iron levels and vitamin D status. I also ensured the prescriptions would be mailed to her residence before her planned travel to [place]. Patient was informed and verbally consented to the use of an ambient scribe for clinic note documentation during this visit. Orders: Orders Lipid Panel 10/30/24 D64.9 - Anemia, unspecified, E11.9 - Type 2 diabetes mellitus without complications, E55.9 - Vitamin D deficiency, unspecified, E56.9 - Vitamin deficiency, unspecified, E78.5 - Hyperlipidemia, unspecified, I10 - Essential (primary) hypertension, N18.9 - Chronic kidney disease, unspecified Vitamin D 25-OH Total 10/30/24 D64.9 - Anemia, unspecified, E11.9 - Type 2 diabetes mellitus without complications, E55.9 - Vitamin D deficiency, unspecified, E56.9 - Vitamin deficiency, unspecified, E78.5 - Hyperlipidemia, unspecified, I10 - Essential (primary) hypertension, N18.9 - Chronic kidney disease, unspecified Aspartate Amino Transferase 10/30/24 D64.9 - Anemia, unspecified, E11.9 - Type 2 diabetes mellitus without complications, E55.9 - Vitamin D deficiency, unspecified, E56.9 - Vitamin deficiency, unspecified, E78.5 - Hyperlipidemia, unspecified, I10 - Essential (primary) hypertension, N18.9 - Chronic kidney disease, unspecified IRON PROFILE 10/30/24 D64.9 - Anemia, unspecified, E11.9 - Type 2 diabetes mellitus without complications, E55.9 - Vitamin D deficiency, unspecified, E56.9 - Vitamin deficiency, unspecified, E78.5 - Hyperlipidemia, unspecified, I10 - Essential (primary) hypertension, N18.9 - Chronic kidney disease, unspecified Microalbumin, Random (w Creat) 10/30/24 D64.9 - Anemia, unspecified, E11.9 - Type 2 diabetes mellitus without complications, E55.9 - Vitamin D deficiency, unspecified, E56.9 - Vitamin deficiency, unspecified, E78.5 - Hyperlipidemia, unspecified, I10 - Essential (primary) hypertension, N18.9 - Chronic kidney disease, unspecified Alanine Aminotransferase 10/30/24 D64.9 - Anemia, unspecified, E11.9 - Type 2 diabetes mellitus without complications, E55.9 - Vitamin D deficiency, unspecified, E56.9 - Vitamin deficiency, unspecified, E78.5 - Hyperlipidemia, unspecified, I10 - Essential (primary) hypertension, N18.9 - Chronic kidney disease, unspecified Complete Blood Count Auto Diff 10/30/24 D64.9 - Anemia, unspecified, E11.9 - Type 2 diabetes mellitus without complications, E55.9 - Vitamin D deficiency, unspecified, E56.9 - Vitamin deficiency, unspecified, E78.5 - Hyperlipidemia, unspecified, I10 - Essential (primary) hypertension, N18.9 - Chronic kidney disease, unspecified Basic Metabolic Panel Fasting 10/30/24 D64.9 - Anemia, unspecified, E11.9 - Type 2 diabetes mellitus without complications, E55.9 - Vitamin D deficiency, unspecified, E56.9 - Vitamin deficiency, unspecified, E78.5 - Hyperlipidemia, unspecified, I10 - Essential (primary) hypertension, N18.9 - Chronic kidney disease, unspecified Hemoglobin A1c 10/30/24 D64.9 - Anemia, unspecified, E11.9 - Type 2 diabetes mellitus without complications, E55.9 - Vitamin D deficiency, unspecified, E56.9 - Vitamin deficiency, unspecified, E78.5 - Hyperlipidemia, unspecified, I10 - Essential (primary) hypertension, N18.9 - Chronic kidney disease, unspecified Medications: New cholecalciferol (vitamin D3) 1,250 mcg PO QWEEK 3 months 13 caps 0RF E55.9 - Vitamin D deficiency, unspecified
[2024-08-03 10:27] VITALS: BP 130/60; PULSE 76; O2SAT 96; BMI 26.9
== END 2024-08-03 13:05 | disposition home or self-care (01) ==
PROVIDERS: PCP Internal Medicine; Visit Provider Internal Medicine
DX: I12.9 Hypertensive chronic kidney disease with stage 1 through stage 4 chronic kidney disease, or unspecified chronic kidney disease (principal); E11.9 Type 2 diabetes mellitus without complications; H61.23 Impacted cerumen, bilateral; N18.9 Chronic kidney disease, unspecified; E56.9 Vitamin deficiency, unspecified; D64.9 Anemia, unspecified; E78.5 Hyperlipidemia, unspecified

== ENCOUNTER → 2024-08-03 10:00 | Outpatient (BNVA) | payer MEDICARE, SELFPAY | PROVIDERS: PCP Internal Medicine; Visit Provider Internal Medicine | DX: H61.23 Impacted cerumen, bilateral (principal); I12.9 Hypertensive chronic kidney disease with stage 1 through stage 4 chronic kidney disease, or unspecified chronic kidney disease; E11.22 Type 2 diabetes mellitus with diabetic chronic kidney disease; N18.9 Chronic kidney disease, unspecified; E56.9 Vitamin deficiency, unspecified; D64.9 Anemia, unspecified; E78.5 Hyperlipidemia, unspecified | CPT/HCPCS: 99212 ==

== ENCOUNTER 2024-11-02 10:04 | Outpatient (REF) | payer MEDICARE, SELFPAY ==
[2024-11-02 13:23] LABS: MANUAL DIFF FLAG NO
[2024-11-02 13:27] LABS: Basophils Percent Auto 0.5 % (0-2); Eosinophils Absolute Auto 0.4 X10*3/uL (0.0-0.4); Eosinophils Percent Auto 4.8 % (0-4); Hematocrit 34.8 % (37.0-47.0); Hemoglobin 10.8 g/dl (12.0-16.0); Imm Gran Abs Auto 0.01 X10*3/uL (0.00-0.03); Imm Gran Pct Auto 0.1 % (0.0-0.4); Lymphocytes Absolute Auto 2.2 X10*3/uL (1.2-4.9); Lymphocytes Percent Auto 29.4 % (20-40); Mean Corpuscular Hemoglobin 29.8 pg (27.0-33.0); Mean Corpuscular Volume 95.9 fL (80.0-98.0); Mean Platelet Volume 9.9 fL (9.4-12.3); Monocytes Absolute Auto 0.4 X10*3/uL (0.1-1.2); Monocytes Percent Auto 5.4 % (2-11); Neutrophils Absolute Auto 4.5 x10*3/uL (2.0-8.3); Neutrophils Percent Auto 59.8 % (45-73); Platelet Count 234 X10*3/uL (160-400); Red Blood Count 3.63 X10*6/uL (4.20-5.50); Red Cell Distribution Width 13.9 % (11.0-16.0); White Blood Count 7.5 X10*3/uL (4.8-10.8)
[2024-11-02 13:39] LABS: Estimated Average Glucose 131 mg/dL; Hemoglobin A1C 129.4829 umol/L; Hemoglobin A1c % 6.2 % (<6.0); Total Hemoglobin (HGBA1C) 2932.9175 umol/L
[2024-11-02 13:44] LABS: Alanine Aminotransferase 9 U/L (0-31); Anion Gap 13 (12-20); Aspartate Amino Transferase 32 U/L (5-31); Blood Urea Nitrogen 26 mg/dL (9-16); Calcium 9.4 mg/dL (8.4-10.2); Carbon Dioxide 21 mmol/L (22-29); Chloride 110 mmol/L (96-108); Cholesterol 137 mg/dL (<200); Estimated Glomerular Filt Rate 36; Glucose Fasting 82 mg/dL (60-99); HDL Cholesterol 59 mg/dL (>40); Iron 53 mcg/dL (30-160); LDL Cholesterol Calculated 66 mg/dL (<100); Percent Iron Saturation 25 % (15-50); Potassium 4.7 mmol/L (3.3-5.1); Sodium 139 mmol/L (135-145); Total Iron Binding Capacity 214 mcg/dL (228-428); Triglycerides 61 mg/dL (<150); Unsaturated Iron Binding 161 ug/dL
[2024-11-02 13:53] LABS: Creatinine Urine 119.94 mg/dL; Microalbum/Creatinine Ratio Ur 103.3 ug/mg cr (<30)
== END 2024-11-02 10:05 | disposition home or self-care (01) ==
LOC: HO.HMGCLDS 10:04
PROVIDERS: PCP Internal Medicine; Visit Provider Internal Medicine
DX: E55.9 Vitamin D deficiency, unspecified (principal); N18.9 Chronic kidney disease, unspecified; E11.9 Type 2 diabetes mellitus without complications; E56.9 Vitamin deficiency, unspecified; D64.9 Anemia, unspecified; E78.5 Hyperlipidemia, unspecified; I10 Essential (primary) hypertension
CPT/HCPCS: 36415; 80048; 80061; 82043; 82306; 82570; 83036; 83540; 84450; 84460; 85025

== ENCOUNTER 2024-12-07 09:10 | Outpatient (AMB) | payer MEDICARE, SELFPAY ==
--- NOTE | 2024-12-07 09:30 | MHC.PC.OV ---
Vital Signs 12/07/24 09:34 Height 4 ft 11 in Weight 125 lb BMI 25.2 BP 126/68 Blood Pressure Location Lt brachial Position Sitting Pulse 88 Pulse Source Pulse Oximeter Temp 98.2 F Temp Source Oral Pulse Oximetry (%) 100 Oxygen Delivery Method Room Air Intake Visit Reasons: F/u labs- reschedule Intake Note: Pt is here today to f/u labs Allergies No Known Allergies Allergy (Verified 12/07/24 10:04) Medication List - Last Reconciled 12/07/24 by Floresita Mora MD albuterol sulfate 90 mcg/actuation 2 inhalations inhalation QID PRN ascorbate calcium (vitamin C) 500 mg PO DAILY aspirin (Ecotrin Low Strength) 81 mg PO DAILY cholecalciferol (vitamin D3) 1,250 mcg PO QWEEK 3 months ferrous sulfate (FeroSul) 325 mg PO DAILY fluticasone propion-salmeterol 115-21 mcg/actuation (Advair HFA) 2 puffs inhalation Q12H 90 days fluticasone propionate 50 mcg/actuation 1 spray intranasal DAILY furosemide 20 mg PO QAM PRN isosorbide mononitrate ER 30 mg PO DAILY lisinopril 2.5 mg PO DAILY metformin ER 500 mg PO DAILY 90 days montelukast (Singulair) 10 mg PO BEDTIME 90 days multivitamin 1 tab PO DAILY rosuvastatin 40 mg PO DAILY Tobacco use date assessed: 12/07/24 Fall risk assessment: No Falls in past year Last assessed Fall Risk: 12/07/24 Dental Screening Dental Screen Date: 12/07/24 HPI F/u labs- reschedule HPI Details 89-year-old female presenting for follow-up on her hypertension, well-controlled with lisinopril 2.5 mg daily, and Isosorbide mononitrate , takes furosemide as needed for edema, and Rosuvastatin for hyperlipidemia. She has diabetes mellitus currently on metformin ER 500 mg taken once a day, and takes rosuvastatin 40 mg daily for her elevated lipids. Latest fasting labs showed normal electrolytes, but EGFR is at 36 with creatinine 1.38. Complete blood count showed hemoglobin at 10.8 with normal RBC indices. Fasting lipids are within normal limits, but vitamin-D is low at 7 ng/mL, hemoglobin A1c is at 6.2%. Patient states that she has been feeling well, with no complaints at present time. [facility] Medical History (Updated 12/07/24 @ 10:24 by Floresita Mora MD) Chronic allergic rhinitis Asthma CKD (chronic kidney disease) Encounter for general adult medical examination with abnormal findings Keratoma Onychomycosis Dyspnea Hypoxia ILD (interstitial lung disease) Chronic restrictive lung disease Nocturnal hypoxia First degree AV block Sinus bradycardia Type 2 diabetes mellitus without complication, without long-term current use of insulin Vitamin deficiency Anemia Hx of aortic valve stenosis CAD (coronary artery disease) Dyslipidemia Essential hypertension Diabetes mellitus with hyperglycemia, without long-term current use of insulin Hx of cataract Surgical History Hx of coronary artery bypass graft Hx of carpal tunnel repair Hx of total hysterectomy Hx of knee surgery Hx of CABG Hx of aortic valve replacement Hx of cholecystectomy Family History Sister Colon cancer, Onset Age: 94 Sister Breast cancer, Onset Age: 73 Father Lung cancer Mother CAD (coronary artery disease) Myocardial infarction acute, Onset Age: 84 Other No significant family history Social History Housing: House Alcohol intake: never Patient Tobacco Use Status: Former Tobacco user Tobacco use type: Cigarette Years Smoked: 43 e-Cigarette/Vaping Use: Never Used Second Hand Smoke Exposure: No Current occupational status: retired Cognitive needs: No Hearing needs: No Vision needs: Yes Questionnaire PHQ-9 Over the last 2 weeks, how often have you been bothered by any of the following problems? 1. Little interest or pleasure in doing things: not at all 2. Feeling down, depressed, or hopeless: not at all 3. Trouble falling or staying asleep, or sleeping too much: not at all 4. Feeling tired or having little energy: not at all 5. Poor appetite or overeating: not at all 6. Feeling bad about yourself - or that you are a failure or have let yourself or your family down: not at all 7. Trouble concentrating on things, such as reading the newspaper or watching television: not at all 8. Moving or speaking so slowly that other people could have noticed. Or the opposite - being so fidgety or restless that you have been moving around a lot more than usual: not at all 9. Thoughts that you would be better off or of hurting yourself in some way: not at all Total score: 0 Depression Screening Interpretation: Negative Depression Screening Done: Yes 01903 - PHQ-9 Billing: Yes Source: Developed by Drs. Ming Contreras, Greta Loco, Diaz Pa and colleagues, with an educational carlos from [employer]. Thrive Questionnaire Date Thrive assessed: 12/07/24 I am a: Patient What is your living situation today?: I have a steady place to live Within the past 12 months, did the food you bought not last and you didn't have the money to get more?: I choose not to answer this question Within the past 12 months, did you worry whether your food would run out before you got money to buy more?: Never true Do you have trouble paying for medicines?: No Do you have trouble getting transportation to medical appointments?: No Do you have trouble paying your heating and electricity bill?: No Do you have trouble taking care of your child, family member or friend?: No Do you have trouble with day-to-day activities such as bathing, preparing meals, shopping, managing finances, etc.?: No Are you currently unemployed and looking for a job?: No Are you interested in more education?: No Please select the resources that you would like help with: None Currently or been in a relationship where the following occur: I choose not to answer THRIVE Score: 0 AUDIT C Alcohol Use Questionnaire (AUDIT-C) 1. How often do you have a drink containing alcohol?: Never Total Score: 0 ANTHONY-7 AMB Questionnaire ANTHONY-7 Date ANTHONY - 7 assessed: 12/07/24 Feeling nervous, anxious, or on edge: 0 = Not at all Not being able to stop or control worryin = Not at all Worrying too much about different things: 0 = Not at all Trouble relaxin = Not at all Being so restless that it is hard to sit still: 0 = Not at all Becoming easily annoyed or irritable: 0 = Not at all Feeling afraid as if something awful might happen: 0 = Not at all Total ANTHONY-7 score (0-4 normal; 5-9 mild; 10-14 moderate; 15-21 severe): 0 Source: Developed by Drs. Ming Contreras, Greta Loco, Diaz Pa and colleagues, with an educational carlos from [employer]. ANTHONY-7 Assessment Billing ANTHONY-7 Assessment Tool: ANTHONY-7 Assessment 37884 Review of Systems Const Denies fatigue, Denies headache(s) and Denies weakness ENT Denies dizziness and Denies headache(s) Card Denies chest pain, Denies chest pain with activity, Denies syncope, Denies rapid heart rate, Denies leg edema, Denies lightheadedness, Denies palpitations, Denies dyspnea and Denies dyspnea on exertion Resp Denies cough, Denies dyspnea and Denies dyspnea on exertion GI Denies hematochezia and Denies change in stool character Reports no additional complaints Musc Denies abnormal gait, Denies muscle cramps, Denies muscle weakness, Denies numbness, Denies radiating pain into limb and Denies tingling Neuro Denies abnormal gait, Denies dizziness, Denies syncope, Denies headache(s), Denies numbness, Denies tingling and Denies weakness Psych Reports no additional complaints Endo Denies fatigue and Denies palpitations Sagar/Lymph Denies easy bleeding and Denies easy bruising Physical exam (Primary Care) Vital Signs: Last Vital Signs Temp 98.2 F 12/07/24 09:34 Pulse 88 12/07/24 09:34 BP 126/68 12/07/24 09:34 Pulse Ox 100 12/07/24 09:34 Oxygen Delivery Method Room Air 12/07/24 09:34 BMI result Body Mass Index 25.2 Tobacco/Smoking Status: Tobacco use Status Tobacco use date assessed 12/07/24 12/07/24 09:33 Patient Tobacco Use Status Former Tobacco user 12/07/24 09:33 Tobacco use type Cigarette 12/07/24 09:33 e-Cigarette/Vaping Use Never Used 12/07/24 09:33 PHQ-9: PHQ-9 Score PHQ-9: Total score 0 12/08/24 01:32 Depression Screening Interpretation: Negative Thrive Assessment: Date of Thrive Assessment Date Thrive assessed 12/07/24 12/07/24 09:41 Currently or been in a relationship where the following occur: I choose not to answer Const General: comfortable, no acute distress and alert Orientation/consciousness: patient oriented x3 HENMT Ears: external ears normal and Abnormal EAC present cerumen impaction bilateral General nose exam: Normal external nose present and No nasal discharge present Mouth: Normal oral and palatal mucosa present, oropharynx normal and moist mucous membranes Eyes General: appearance normal, both eyes and all related structures Neck Neck: Yes full ROM, Yes no lymphadenopathy and Yes supple Resp Effort & Inspection: normal respiratory effort and able to speak in complete sentences Auscultation: clear to auscultation bilaterally Cardio Rate: regular rate Rhythm: regular rhythm Heart sounds: S1 normal heart sound present and S2 normal heart sound present GI Palpation (GI): Soft to palpation, nontender and no masses Auscultation: normal bowel sounds General: Yes no CVA tenderness Back/Spine/Pelvis Back: no CVA tenderness and No back tenderness Skin General skin exam: no rashes or lesions noted Neuro General: patient oriented x3, tone normal, moves all extremities, Normal light touch and pain sensation and no focal motor deficits Cranial nerves: Yes CN's II-XII intact bilaterally Cognition (Neuro): normal cognition Extrem General: Yes full ROM, Yes no joint enlargement, Yes no clubbing, cyanosis or edema and Yes no calf tenderness Psych Appearance: grossly normal and well kempt Mental Status: mental status grossly normal Speech and movement: Normal speech and movement present Affect: normal affect Attitude: cooperative Thought process: Normal thought process present Thought content: Normal thought content present Results Reviewed Results Reviewed: Name: Stephanie Fernandez Age/Sex: 89/F : 1935 Unit#: [id number] Attend Dr: Floresita Mora MD Re11/02/24 Status: DEP REF [facility] Disch: SPEC : [id number] BETHEL: 11/02/24 STATUS: COMP REQ : [id number] RECD: 11/02/[address]: Floresita Mora MD COMP: 11/02/24 ENTERED: 11/02/[address]: ORDERED: CBC Auto Diff Test Result Flag Reference WBC 7.5 4.8-10.8 X10*3/uL RBC 3.63 L 4.20-5.50 X10*6/uL HGB 10.8 L 12.0-16.0 g/dl HCT 34.8 L 37.0-47.0 % MCV 95.9 80.0-98.0 fL MCH 29.8 27.0-33.0 pg MCHC 31.0 31.0-35.0 g/dl RDW 13.9 11.0-16.0 % PLT 234 160-400 X10*3/uL MPV 9.9 9.4-12.3 fL Neut Pct Auto 59.8 45-73 % ImGran Pct Auto 0.1 0.0-0.4 % Lymp Pct Auto 29.4 20-40 % [place] Pct Auto 5.4 2-11 % Eos Pct Auto 4.8 H 0-4 % Baso Pct Auto 0.5 0-2 % NRBC Pct Auto 0.0 0.0-0.2 /100WBC ANC Neut Abs # 4.5 2.0-8.3 x10*3/uL ImGran Abs Auto 0.01 0.00-0.03 X10*3/uL Lymph Abs Auto 2.2 1.2-4.9 X10*3/uL [place] Abs Auto 0.4 0.1-1.2 X10*3/uL Eos Abs Auto 0.4 0.0-0.4 X10*3/uL Baso Abs Auto 0.0 0.0-0.2 X10*3/uL NRBC Abs Auto 0.000 0.0-0.012 X10*3/uL Laboratory Tests 08/02/24 11/02/24 11/02/24 09:55 10:10 10:15 Estimat Average Glucose 131 Hemoglobin A1c % 6.2 H Urine Creatinine 101.58 119.94 Urine Microalbumin 22.0 124.0 Microalb/Creat Ratio 21.6 103.3 H Name: Stephanie Fernandez Age/Sex: 89/F : 1935 Unit#: [id number] Attend Dr: Floresita Mora MD Re11/02/24 Status: DEP REF Location: [facility] Disch: SPEC : [id number] BETHEL: 11/02/24-1010 STATUS: COMP REQ : [id number] RECD: 11/02/24-[address]: Floresita Mora MD COMP: 11/02/24-1359 ENTERED: 11/02/24-[address]: ORDERED: Met Prof Fast, IRON PROF, AST, ALT, Lipid Panel, Vitamin D 25-OH Test Result Flag Reference Sodium 139 135-145 mmol/L Potassium 4.7 3.3-5.1 mmol/L CL 110 H 96-108 mmol/L CO2 21 L 22-29 mmol/L Gap 13 12-20 BUN 26 H 9-16 mg/dL Creat 1.38 0.5-1.4 mg/dL eGFR 36 Chronic Kidney Disease: Estimated GFR < 60 mL/min/1.73m2 Severe Kidney Disease: Estimated GFR < 15 mL/min/1.73m2 FBS 82 60-99 mg/dL CA 9.4 8.4-10.2 mg/dL Iron 53 30-160 mcg/dL TIBC 214 L 228-428 mcg/dL Saturation 25 15-50 % UIBC 161 ug/dL AST (GOT) 32 H 5-31 U/L ALT (GPT) 9 0-31 U/L Triglyceride 61 <150 mg/dL Desirable Triglyceride: less than 150 mg/dL Borderline High Triglyceride 150-199 mg/dL High Triglyceride: 200-499 mg/dL Very High Triglyceride: greater than or equal to 5OO mg/dL Cholesterol 137 <200 mg/dL Desirable Cholesterol: less than 200 mg/dL Borderline High Cholesterol: 200-239 mg/dL High Cholesterol: greater than 239 mg/dL LDL Calculated 66 <100 mg/dL Desirable LDL: less than 100 mg/dL Near Optimal/Above Optimal LDL: 110-129 mg/dL Borderline High LDL: 130-159 mg/dL High LDL: 160-189 mg/dL Very High LDL: greater than or equal to 190 mg/dL HDL 59 >40 mg/dL Desirable HDL: greater than 40 mg/dL Note: This HDL assay may give artificially low results in patients with liver disease. Vit D 25-OH Tot 7.0 L >30 ng/mL Health Based Reference Values* < 20 ng/mL Deficient 20-30 ng/mL Insufficient > 30 ng/mL Sufficient Coding Level of Care Code Est Pt Level 4 (43388) Complex EM visit Add On G2211 Diagnoses CKD (chronic kidney disease) N18.9 Anemia, unspecified type D64.9 Anemia type: unspecified type Essential hypertension I10 Dyslipidemia E78.5 Vitamin deficiency E56.9 Type 2 diabetes mellitus without complication, without long-term current use of insulin E11.9 Additional Codes PHQ-9 - 35506 - PHQ-9 Billing: Yes ([id number]) ANTHONY-7 Assessment Billing - ANTHONY-7 Assessment Tool: ANTHONY-7 Assessment 00388 ([id number]) Assessment & Plan Assessment & Plan (1) CKD (chronic kidney disease): Code(s): N18.9 - Chronic kidney disease, unspecified Category: Medical Plan: Will need to stop metformin due to decreasing renal function., avoidance of NSAIDs stressed (2) Anemia: Code(s): D64.9 - Anemia, unspecified Category: Medical Qualifiers: Anemia type: unspecified type Qualified Code(s): D64.9 - Anemia, unspecified Plan: Likely due to anemia of chronic disease. Currently asymptomatic but will start her on ferrous sulfate 325 mg taken once a day (3) CKD (chronic kidney disease): Code(s): N18.9 - Chronic kidney disease, unspecified Category: Medical Plan: Nephrology consult obtained (4) Essential hypertension: Code(s): I10 - Essential (primary) hypertension Category: Medical Plan: Blood pressure at goal of less than 130/80. Continue with current medication. Reinforced importance of following a low sodium diet, getting regular exercise, and lowering stress levels. (5) Dyslipidemia: Code(s): E78.5 - Hyperlipidemia, unspecified Category: Medical Plan: Reviewed recent fasting lipid profile with patient with levels within normal limits . Continue rosuvastatin 40 mg daily , in addition to adherence to low-cholesterol diet and regular exercise, at least 30 minutes 3 to 4 times a week. Advised patient to make healthy food choices, eat more fruits, vegetables, whole grains, wild caught fish and low-fat dairy. Limit amount of meat and fried or fatty food products, as well as processed foods and fast foods. Follow-up scheduled with repeat fasting lipid panel in the 3 months. (6) Vitamin deficiency: Code(s): E56.9 - Vitamin deficiency, unspecified Category: Medical Plan: Prescription sent for vitamin-D 3 replacement 1000 units per capsule to take once a week for the next 3 months. With wide refill (7) Type 2 diabetes mellitus without complication, without long-term current use of insulin: Code(s): E11.9 - Type 2 diabetes mellitus without complications Category: Medical Plan: Hemoglobin A1c is at 6.2%, but will need to stop metformin due to decreasing renal function. Will continue to monitor blood sugar, stressed importance of adherence to healthy eating habits and getting regular exercise. Will follow-up in 3 months Orders: Orders IRON PROFILE 03/05/25 E11.9 - Type 2 diabetes mellitus without complications, E56.9 - Vitamin deficiency, unspecified, E78.5 - Hyperlipidemia, unspecified, I10 - Essential (primary) hypertension, N18.9 - Chronic kidney disease, unspecified Lipid Panel 03/05/25 E11.9 - Type 2 diabetes mellitus without complications, E56.9 - Vitamin deficiency, unspecified, E78.5 - Hyperlipidemia, unspecified, I10 - Essential (primary) hypertension, N18.9 - Chronic kidney disease, unspecified Vitamin D 25-OH Total 03/05/25 E11.9 - Type 2 diabetes mellitus without complications, E56.9 - Vitamin deficiency, unspecified, E78.5 - Hyperlipidemia, unspecified, I10 - Essential (primary) hypertension, N18.9 - Chronic kidney disease, unspecified Hemoglobin A1c 03/05/25 E11.9 - Type 2 diabetes mellitus without complications, E56.9 - Vitamin deficiency, unspecified, E78.5 - Hyperlipidemia, unspecified, I10 - Essential (primary) hypertension, N18.9 - Chronic kidney disease, unspecified Basic Metabolic Panel Fasting 03/05/25 E11.9 - Type 2 diabetes mellitus without complications, E56.9 - Vitamin deficiency, unspecified, E78.5 - Hyperlipidemia, unspecified, I10 - Essential (primary) hypertension, N18.9 - Chronic kidney disease, unspecified Alanine Aminotransferase 03/05/25 E11.9 - Type 2 diabetes mellitus without complications, E56.9 - Vitamin deficiency, unspecified, E78.5 - Hyperlipidemia, unspecified, I10 - Essential (primary) hypertension, N18.9 - Chronic kidney disease, unspecified Aspartate Amino Transferase 03/05/25 E11.9 - Type 2 diabetes mellitus without complications, E56.9 - Vitamin deficiency, unspecified, E78.5 - Hyperlipidemia, unspecified, I10 - Essential (primary) hypertension, N18.9 - Chronic kidney disease, unspecified Referrals Nephrology Referral D64.9 - Anemia, unspecified, N18.9 - Chronic kidney disease, unspecified Medications: Refilled cholecalciferol (vitamin D3) 1,250 mcg PO QWEEK 3 months 13 caps 1RF E55.9 - Vitamin D deficiency, unspecified
[2024-12-07 09:34] VITALS: BP 126/68; PULSE 88; TEMP 36.8; O2SAT 100; BMI 25.2
== END 2024-12-07 11:28 | disposition home or self-care (01) ==
PROVIDERS: PCP Internal Medicine; Visit Provider Internal Medicine
DX: I12.9 Hypertensive chronic kidney disease with stage 1 through stage 4 chronic kidney disease, or unspecified chronic kidney disease (principal); N18.9 Chronic kidney disease, unspecified; E11.69 Type 2 diabetes mellitus with other specified complication; D64.9 Anemia, unspecified; E78.5 Hyperlipidemia, unspecified; E56.9 Vitamin deficiency, unspecified

== ENCOUNTER → 2024-12-07 09:10 | Outpatient (BNVA) | payer MEDICARE, SELFPAY | PROVIDERS: PCP Internal Medicine; Visit Provider Internal Medicine | DX: E11.22 Type 2 diabetes mellitus with diabetic chronic kidney disease (principal); I12.9 Hypertensive chronic kidney disease with stage 1 through stage 4 chronic kidney disease, or unspecified chronic kidney disease; N18.9 Chronic kidney disease, unspecified; D63.1 Anemia in chronic kidney disease; E78.5 Hyperlipidemia, unspecified; E56.9 Vitamin deficiency, unspecified; E55.9 Vitamin D deficiency, unspecified; Z79.899 Other long term (current) drug therapy; Z79.84 Long term (current) use of oral hypoglycemic drugs; Z87.891 Personal history of nicotine dependence | CPT/HCPCS: 96127; 99212 ==

== ENCOUNTER 2025-01-05 10:05 | Outpatient (AMB) | payer MEDICARE, SELFPAY ==
--- NOTE | 2025-01-05 10:11 | HO.NEPHOV ---
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 Accompanied by: Nephew or Niece Allergies No Known Allergies Allergy (Verified 01/05/25 10:19) Medication List - Last Reconciled 01/05/25 by Pankaj Martinez MD albuterol sulfate 90 mcg/actuation 2 inhalations inhalation QID PRN ascorbate calcium (vitamin C) 500 mg PO DAILY aspirin (Ecotrin Low Strength) 81 mg PO DAILY cholecalciferol (vitamin D3) 1,250 mcg PO QWEEK 3 months ferrous sulfate (FeroSul) 325 mg PO DAILY fluticasone propion-salmeterol 115-21 mcg/actuation (Advair HFA) 2 puffs inhalation Q12H 90 days fluticasone propionate 50 mcg/actuation 1 spray intranasal DAILY furosemide 20 mg PO QAM PRN isosorbide mononitrate ER 30 mg PO DAILY lisinopril 2.5 mg PO DAILY metformin ER 500 mg PO DAILY 90 days montelukast (Singulair) 10 mg PO BEDTIME 90 days multivitamin 1 tab PO DAILY rosuvastatin 40 mg PO DAILY HPI Comments Details: Stephanie is a pleasant 89-year-old woman with a history of longstanding hypertension, coronary disease status post CABG and diabetes mellitus. She has been referred for mild anemia and chronic disease. EGFR has been between 35 and 45 mL/minute for the last couple of years. Her hemoglobin is between 10 and 11 grams/deciliter. Recent iron stores were adequate. She has been referred for further evaluation of chronic disease and anemia. [facility] Medical History (Updated 12/07/24 @ 10:24 by Floresita Mora MD) Chronic allergic rhinitis Asthma CKD (chronic kidney disease) Encounter for general adult medical examination with abnormal findings Keratoma Onychomycosis Dyspnea Hypoxia ILD (interstitial lung disease) Chronic restrictive lung disease Nocturnal hypoxia First degree AV block Sinus bradycardia Type 2 diabetes mellitus without complication, without long-term current use of insulin Vitamin deficiency Anemia Hx of aortic valve stenosis CAD (coronary artery disease) Dyslipidemia Essential hypertension Diabetes mellitus with hyperglycemia, without long-term current use of insulin Hx of cataract Surgical History Hx of coronary artery bypass graft Hx of carpal tunnel repair Hx of total hysterectomy Hx of knee surgery Hx of CABG Hx of aortic valve replacement Hx of cholecystectomy Family History Sister Colon cancer, Onset Age: 94 Sister Breast cancer, Onset Age: 73 Father Lung cancer Mother CAD (coronary artery disease) Myocardial infarction acute, Onset Age: 84 Other No significant family history Social History Housing: House Alcohol intake: never Patient Tobacco Use Status: Former Tobacco user Tobacco use type: Cigarette Years Smoked: 43 e-Cigarette/Vaping Use: Never Used Second Hand Smoke Exposure: No Current occupational status: retired Cognitive needs: No Hearing needs: No Vision needs: Yes Review of Systems Const Denies fever(s) and Denies weight loss Card Denies chest pain Resp Denies cough and Denies hemoptysis GI Denies abdominal pain, Denies diarrhea and Denies nausea Musc Denies back pain Neuro Denies focal weakness Physical Exam Vital Signs: Last Vital Signs BP 102/52 L 01/05/25 10:16 BMI result Body Mass Index 24.0 Const General: comfortable; No acute distress Orientation/consciousness: patient oriented x3 Eyes General: appearance normal, both eyes and all related structures Visual Floyd: normal visual floyd by confrontation Neck Neck: Yes supple and Yes no JVD Resp Effort & Inspection: normal respiratory effort and respiratory effort not decreased Cardio Palpation: no palpable S3 and no palpable S4 Heart sounds: no rubs GI Inspection: Yes normal to inspection Palpation (GI): Soft to palpation Percussion: Yes normal to percussion Auscultation: normal bowel sounds General: Yes no CVA tenderness Back/Spine/Pelvis Back: no CVA tenderness Skin General skin exam: no petechiae and no purpura Neuro General: patient oriented x3 and no focal motor deficits Extrem General: No clubbing and No edema Results Reviewed Nephrology Results: Hgb 10.8 g/dl (12.0-16.0) L 11/02/24 WBC 7.5 X10*3/uL (4.8-10.8) 11/02/24 Plt Count 234 X10*3/uL (160-400) 11/02/24 Sodium 139 mmol/L (135-145) 11/02/24 Potassium 4.7 mmol/L (3.3-5.1) 11/02/24 Chloride 110 mmol/L (96-108) H 11/02/24 Carbon Dioxide 21 mmol/L (22-29) L 11/02/24 BUN 26 mg/dL (9-16) H 11/02/24 Creatinine 1.38 mg/dL (0.5-1.4) 11/02/24 Calcium 9.4 mg/dL (8.4-10.2) 11/02/24 Urine Creatinine 119.94 mg/dL 11/02/24 Assessment & Plan Assessment & Plan (1) CKD (chronic kidney disease): Code(s): N18.9 - Chronic kidney disease, unspecified Category: Medical (2) Anemia: Code(s): D64.9 - Anemia, unspecified Category: Medical Qualifiers: Anemia type: unspecified type Qualified Code(s): D64.9 - Anemia, unspecified Plan Stephanie is a elderly woman with stage III CKD in a setting of coronary artery disease diabetes mellitus and hypertension. She probably has a component of age-related nephron loss. He has micro albuminuria but no significant proteinuria at this time Overall blood pressures been well controlled. No evidence of any active glomerulonephritis or interstitial disease. Obstructive uropathy seems unlikely. There could be a component of hypoperfusion. Plan Decrease Lasix to 20 mg 3 times a week. Recheck renal panel in the next few weeks. Increased maintain adequate hydration. Continue to avoid nephrotoxic agents including NSAIDs. If Renal function does not improve or if there is any increase in serum creatinine pressure proceed with further workup including a renal ultrasonogram. Anemia. 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 -Iron stores are adequate. We will certainly rule out B12 folate deficiency. Will recheck hemoglobin prior to next visit and re-evaluate for erythropoietin replacement therapy Vitamin-D deficiency Continue with vitamin-D supplementation Blood pressure is rather low. She is asymptomatic. With the lowering of Lasix this should improve. I will watch her blood pressure final. If she remains euvolemic I will discontinue Lasix Orders: Orders Parathyroid Hormone Intact 3 Weeks N18.9 - Chronic kidney disease, unspecified Vitamin B12 and Folate 3 Weeks N18.9 - Chronic kidney disease, unspecified Basic Metabolic Panel 3 Weeks N18.9 - Chronic kidney disease, unspecified Complete Blood Count no Diff 3 Weeks N18.9 - Chronic kidney disease, unspecified Medications: Changed From lisinopril 2.5 mg PO DAILY 90 tabs 1RF To lisinopril 2.5 mg PO .evening 90 tabs 1RF Coding Level of Care Code New Pt Level 4 (33933) Diagnoses CKD (chronic kidney disease) N18.9 Anemia, unspecified type D64.9 Anemia type: unspecified type
[2025-01-05 10:16] VITALS: BP 102/52; BMI 24.0
[2025-01-05 10:43] VITALS: BP 90/50
== END 2025-01-05 10:44 | disposition home or self-care (01) ==
LOC: HO.HKAS 10:06
PROVIDERS: PCP Internal Medicine; Visit Provider Internal Medicine Hypertension Specialist
DX: N18.9 Chronic kidney disease, unspecified (principal); D64.9 Anemia, unspecified
CPT/HCPCS: 99204

== ENCOUNTER → 2025-01-05 10:05 | Outpatient (BNVA) | payer MEDICARE, SELFPAY | PROVIDERS: PCP Internal Medicine; Visit Provider Internal Medicine Hypertension Specialist | DX: N18.9 Chronic kidney disease, unspecified (principal); D64.9 Anemia, unspecified | CPT/HCPCS: 99202 ==

== ENCOUNTER 2025-02-01 10:33 | Outpatient (REF) | payer MEDICARE, SELFPAY ==
--- OUTSIDE RECORDS SUMMARY | 2025-02-01 12:11 | XMS_ITS | Patient Health Record ---
Author Organization [facility] Address [address] [place] [address] Care Team Providers Care Director Underwriter Sales Name Role Phone Dai FRANZ, Cammie Primary Care Provider Unavailab khushi Lexi Branch Unavailable [phone] Reason For Referral No Information Medications Medication SIG (Take, Route, Frequency, Duration) Notes Start Date End Date Status Fluticasone Furoate Active Ferrous Sulfate 325 (65 Fe) MG 1 tablet Orally Once a day Active Premarin Active Symbicort Active Crestor 40 MG 1 tablet Orally Once a day Active Isosorbide Mononitrate Active Pantoprazole Sodium 40 MG 1 tablet Orall y Once a day Active Clopidogrel Bisulfate Active Furosemide 1 tab Oral Active Multivitamin Active Metoprolol Tartrate Active Lisinopril Active Aspirin Active Vitamin C 500 MG Orally Act rj metFORMIN HCl 500 MG 1 tablet with meals Orally Twice a day Active Keflex 500 MG 1 capsule Orally warren ry 12 hrs for 10 day(s) 08/22/2017 Active Immunizations Vaccine Route Administration Date Status Comme nts Influenza Unknown 05/12/2017 Administered Social History Tobacco Use: Social History Observation Description Date Details (start date - stop date) Former Smoker NA - NA Tobacco Use/Smoking Question Answer Notes Are you a: former smoker When did you stop smoking? 1983 Additional Findings: Tobacco Non-User Current no n-smoker Alcohol Screen Question Answer Notes Did you have a drink contain ing alcohol in the past year? Yes How often did you have a dri nk containing alcohol in the past year? Monthly or less (1 point) How many drinks did you have on a typical day when you were drinking in the past year? 1 or 2 drinks (0 point) How often did you have 6 or more drinks on one occasion in the past year? Never (0 point) Points 1 Interpretation Negative Tobacco use other than smoking: Question Answer Notes Are you an other tobacco user? No Problems Problem Type SNOMED Code ICD Code Onset Dates Problem Status W/U Status Risk Notes Problem Localized, primary osteoarthritis of the ankle and/or foot (371701534) Primary osteoarthritis, right ankle and foot (M19.071) Active confirmed Problem Non-pressure ulcer lower limb (180662540) Non-pressure chronic ulcer of other part of right foot limited to breakdown of skin (L97.511) Active confirmed Problem Acquired hammer toe of right foot (2002901387060198 ) Other hammer toe(s) (acquired), right foot (M20.41) Active confirmed Problem Polyneuropathy due to type 2 diabetes mellitus (380412262) Type 2 diabetes mellitus with diabetic polyneuropathy (E11.42) Active confirmed Plan Of Treatment Pending Test Test Name Order Date X ray : Foot, right 2V 08/22/2017 [id number] NAIL, 6 OR MORE 11/04/2017 [id number] NAIL, 6 OR MORE 08/22/2017 42719- Debride <25 sq cm 12/16/2017 41676- Debride <25 sq cm 08/22/2017 55379- Debride <25 sq cm 09/24/2017 87257- Debride <25 sq cm 11/04/2017 [id number] SKIN LESIONS, 2 TO 4 11/05/19 18 [id number] SKIN LESIONS, 2 TO 4 08/22/20 17 Insurance Providers Payer Name Payer Address Payer Phone Subscriber Number Group Number Insured Name Patient Relationship to Insured Coverage Start Date Coverage End Date Medicare National [employer] [address] [place] [address] [id number] Stephanie Fernandez Self - patient is the insured [facility] Others [address] [place] [address] [phone] [id number] Stephanie Fernandez Self - patient is the insured Medical (General) History Medical History History ICD Code Anemia Arthritis Cholesterol Diabetic Measles Mumps Chicken pox Heart disease High blood pressure Lung disease Surgical History Surgery Date(Month/Year) triple bypass 12/2014 gall bladder knee replacement hysterectomy tonsillectomy Hospitalization History Reason Date(Month/Year) [facility] fainting 10/2017
[2025-02-01 18:46] LABS: Hematocrit 30.6 % (37.0-47.0); Hemoglobin 9.4 g/dl (12.0-16.0); Mean Corpuscular HGB Conc 30.7 g/dl (31.0-35.0); Mean Corpuscular Hemoglobin 29.8 pg (27.0-33.0); Mean Corpuscular Volume 97.1 fL (80.0-98.0); Mean Platelet Volume 9.7 fL (9.4-12.3); Platelet Count 309 X10*3/uL (160-400); Red Blood Count 3.15 X10*6/uL (4.20-5.50); Red Cell Distribution Width 13.6 % (11.0-16.0)
[2025-02-01 18:50] LABS: Anion Gap 15 (12-20); Blood Urea Nitrogen 28 mg/dL (9-16); Calcium 10.1 mg/dL (8.4-10.2); Carbon Dioxide 24 mmol/L (22-29); Chloride 105 mmol/L (96-108); Estimated Glomerular Filt Rate 32; Glucose Random 75 mg/dL (60-115); Potassium 4.5 mmol/L (3.3-5.1); Sodium 139 mmol/L (135-145)
[2025-02-01 19:28] LABS: Folate 15.4 ng/mL (> or = 4.0); Vitamin B12 736 pg/mL (200-900)
== END 2025-02-01 10:34 | disposition home or self-care (01) ==
LOC: HO.HKASLDS 10:33
PROVIDERS: Visit Provider Internal Medicine Hypertension Specialist
DX: N18.9 Chronic kidney disease, unspecified (principal)
CPT/HCPCS: 36415; 80048; 82607; 82746; 83970; 85027

== ENCOUNTER 2025-02-09 09:59 | Outpatient (AMB) | payer MEDICARE, SELFPAY ==
[2025-02-09 10:06] VITALS: BP 102/54; BMI 22.4
--- NOTE | 2025-02-09 10:06 | HO.NEPHOV_ITS ---
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 Accompanied by: Self / Same As Patient Allergies No Known Allergies Allergy (Verified 02/09/25 10:08) Medication List - Last Reconciled 02/09/25 by Pankaj Martinez MD albuterol sulfate 90 mcg/actuation 2 inhalations inhalation QID PRN ascorbate calcium (vitamin C) 500 mg PO DAILY aspirin (Ecotrin Low Strength) 81 mg PO DAILY cholecalciferol (vitamin D3) 1,250 mcg PO QWEEK 3 months ferrous sulfate (FeroSul) 325 mg PO DAILY fluticasone propion-salmeterol 115-21 mcg/actuation (Advair HFA) 2 puffs inhalation Q12H 90 days fluticasone propionate 50 mcg/actuation 1 spray intranasal DAILY furosemide 20 mg PO QAM PRN isosorbide mononitrate ER 30 mg PO DAILY lisinopril 2.5 mg PO .evening metformin ER 500 mg PO DAILY 90 days montelukast (Singulair) 10 mg PO BEDTIME 90 days multivitamin 1 tab PO DAILY rosuvastatin 40 mg PO DAILY HPI Comments Details: Stephanie is a pleasant 89-year-old woman with a history of longstanding hypertension, coronary disease status post CABG and diabetes mellitus. She has been referred for mild anemia and chronic disease. EGFR has been between 35 and 45 mL/minute for the last couple of years. Her hemoglobin is between 10 and 11 grams/deciliter. Recent iron stores were adequate. She has been referred for further evaluation of chronic disease and anemia. 02/09/25 89-year-old female with CKD in conjunction with anemia management and Vitamin D supplementation. She reports her breathing has been somewhat better but remains problematic. There is no associated swelling or pain. The patient's history includes persistent anemia, though she currently does not require immediate treatment intervention. Continuous monitoring of her blood cell count is planned. Furthermore, she reports taking Vitamin D weekly due to previously low levels. Additionally, she has lost some weight over the last three months while maintaining her usual dietary habits. The patient was instructed to have a kidney ultrasound, which has not yet been completed. There have been no recent adjustments to her current medication regimen beyond reminders about fluid intake and dietary advice. [facility] Medical History (Updated 12/07/24 @ 10:24 by Floresita Mora MD) Chronic allergic rhinitis Asthma CKD (chronic kidney disease) Encounter for general adult medical examination with abnormal findings Keratoma Onychomycosis Dyspnea Hypoxia ILD (interstitial lung disease) Chronic restrictive lung disease Nocturnal hypoxia First degree AV block Sinus bradycardia Type 2 diabetes mellitus without complication, without long-term current use of insulin Vitamin deficiency Anemia Hx of aortic valve stenosis CAD (coronary artery disease) Dyslipidemia Essential hypertension Diabetes mellitus with hyperglycemia, without long-term current use of insulin Hx of cataract Surgical History Hx of coronary artery bypass graft Hx of carpal tunnel repair Hx of total hysterectomy Hx of knee surgery Hx of CABG Hx of aortic valve replacement Hx of cholecystectomy Family History Sister Colon cancer, Onset Age: 94 Sister Breast cancer, Onset Age: 73 Father Lung cancer Mother CAD (coronary artery disease) Myocardial infarction acute, Onset Age: 84 Other No significant family history Social History Housing: House Alcohol intake: never Patient Tobacco Use Status: Former Tobacco user Tobacco use type: Cigarette Years Smoked: 43 e-Cigarette/Vaping Use: Never Used Second Hand Smoke Exposure: No Current occupational status: retired Cognitive needs: No Hearing needs: No Vision needs: Yes Physical Exam Vital Signs: Last Vital Signs BP 102/54 L 02/09/25 10:06 BMI result Body Mass Index 22.4 Const General: comfortable; No acute distress Orientation/consciousness: patient oriented x3 Eyes General: appearance normal, both eyes and all related structures Visual Floyd: normal visual floyd by confrontation Neck Neck: Yes supple and Yes no JVD Resp Effort & Inspection: normal respiratory effort and respiratory effort not decreased Cardio Palpation: no palpable S3 and no palpable S4 Heart sounds: no rubs GI Inspection: Yes normal to inspection Palpation (GI): Soft to palpation Percussion: Yes normal to percussion Auscultation: normal bowel sounds General: Yes no CVA tenderness Back/Spine/Pelvis Back: no CVA tenderness Skin General skin exam: no petechiae and no purpura Neuro General: patient oriented x3 and no focal motor deficits Extrem General: No clubbing and No edema Results Reviewed Nephrology Results: Hgb 9.4 g/dl (12.0-16.0) L 02/01/25 WBC 8.0 X10*3/uL (4.8-10.8) 02/01/25 Plt Count 309 X10*3/uL (160-400) 02/01/25 Sodium 139 mmol/L (135-145) 02/01/25 Potassium 4.5 mmol/L (3.3-5.1) 02/01/25 Chloride 105 mmol/L (96-108) 02/01/25 Carbon Dioxide 24 mmol/L (22-29) 02/01/25 BUN 28 mg/dL (9-16) H 02/01/25 Creatinine 1.53 mg/dL (0.5-1.4) H 02/01/25 Calcium 10.1 mg/dL (8.4-10.2) 02/01/25 PTH Intact 73.0 pg/mL (8.7-77.1) 02/01/25 Urine Creatinine 119.94 mg/dL 11/02/24 Assessment & Plan Assessment & Plan (1) CKD (chronic kidney disease): Code(s): N18.9 - Chronic kidney disease, unspecified Category: Medical (2) Anemia: Code(s): D64.9 - Anemia, unspecified Category: Medical Qualifiers: Anemia type: unspecified type Qualified Code(s): D64.9 - Anemia, unspecified Plan Stephanie is a elderly woman with stage III CKD in a setting of coronary artery disease diabetes mellitus and hypertension. She probably has a component of age-related nephron loss. He has micro albuminuria but no significant proteinuria at this time Overall blood pressures been well controlled. No evidence of any active glomerulonephritis or interstitial disease. Creatinine has bumped up There could be a component of hypoperfusion. r/o Obstruction Plan Keep Lasix to 20 mg 3 times a week. Follow renal panel Encouraged to maintain adequate hydration. Continue to avoid nephrotoxic agents including NSAIDs. Ordered renal ultrasonogram to r/o obstruction Anemia. 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 -Iron stores are adequate. We will certainly rule out B12 folate deficiency. Will monitor hemoglobin and re-evaluate for erythropoietin replacement therapy Vitamin-D deficiency Continue with vitamin-D supplementation Blood pressure is acceptable She is asymptomatic. Orders: Orders Basic Metabolic Panel 2 Months N18.9 - Chronic kidney disease, unspecified Complete Blood Count no Diff 2 Months N18.9 - Chronic kidney disease, unspecified renal BI Today N18.9 - Chronic kidney disease, unspecified Coding Level of Care Code Est Pt Level 4 (89173) Diagnoses CKD (chronic kidney disease) N18.9 Anemia, unspecified type D64.9 Anemia type: unspecified type
--- OUTSIDE RECORDS SUMMARY | 2025-02-09 11:11 | XMS_ITS | Patient Health Record ---
Author Organization [facility] Address [address] [place] [address] Care Team Providers Care Vehicle Trimmer Name Role Phone Dai FRANZ, Cammie Primary Care Provider Unavailab khushi Lexi Branch Unavailable [phone] Reason For Referral No Information Medications Medication [...] primary osteoarthritis of the ankle and/or foot (269008995) Primary osteoarthritis, right ankle and foot (M19.071) Active confirmed Problem Non-pressure ulcer lower limb (035458173) Non-pressure chronic ulcer of other part of right foot limited to breakdown of skin (L97.511) Active confirmed Problem Acquired hammer toe of right foot (2697301890224334 ) Other hammer toe(s) (acquired), right foot (M20.41) Active confirmed Problem Polyneuropathy due to type 2 diabetes mellitus (921210832) Type 2 diabetes mellitus with diabetic polyneuropathy (E11.42) Active confirmed Plan Of Treatment Pending Test Test Name Order Date X ray : Foot, right 2V 08/22/2017 [id number] NAIL, 6 OR MORE 11/04/2017 [id number] NAIL, 6 OR MORE 08/22/2017 18082- Debride <25 sq cm 12/16/2017 91794- Debride <25 sq cm 08/22/2017 17300- Debride <25 sq cm 09/24/2017 39396- Debride <25 sq cm 11/04/2017 [id number] SKIN LESIONS, 2 TO 4 11/05/19 18 [id number] SKIN LESIONS, 2 TO 4 08/22/20 17 Insurance Providers Payer Name Payer Address Payer Phone Subscriber Number Group Number Insured Name Patient Relationship to Insured Coverage Start Date Coverage End Date Medicare National Gov[employer] Sv[employer] [address] [place] [address] [id number] Stephanie Fernandez Self - patient is the insured [facility] Others [address] [place] [address] [phone] [id number] Stephanie Fernandez Self - patient is the insured Medical (General) History Medical History History ICD Code Anemia Arthritis Cholesterol Diabetic Measles Mumps Chicken pox Heart disease High blood pressure Lung disease Surgical History Surgery Date(Month/Year) triple bypass 12/2014 gall bladder knee replacement hysterectomy tonsillectomy Hospitalization History Reason Date(Month/Year) [facility] fainting 10/2017
== END 2025-02-09 10:23 | disposition home or self-care (01) ==
LOC: HO.HKAS 10:00
PROVIDERS: PCP Internal Medicine; Visit Provider Internal Medicine Hypertension Specialist
DX: N18.9 Chronic kidney disease, unspecified (principal); D64.9 Anemia, unspecified
CPT/HCPCS: 99214

== ENCOUNTER → 2025-02-09 09:59 | Outpatient (BNVA) | payer MEDICARE, SELFPAY | PROVIDERS: PCP Internal Medicine; Visit Provider Internal Medicine Hypertension Specialist | DX: N18.9 Chronic kidney disease, unspecified (principal); D64.9 Anemia, unspecified | CPT/HCPCS: 99212 ==